=== PATIENT | male | born 1950 | race Caucasian/White ===

== ENCOUNTER 2021-10-11 17:49 | Outpatient (REF) | payer OTHER, SELFPAY ==
[2021-10-11 22:12] LABS: PSA, Diagnostic 38.8 ng/mL (0.0-6.5)
== END 2021-10-11 17:50 | disposition home or self-care (01) ==
LOC: LBN 17:49
PROVIDERS: PCP Internal Medicine; Visit Provider Nurse Practitioner Gerontology
DX: C61 Malignant neoplasm of prostate (principal)
CPT/HCPCS: 84153

== ENCOUNTER → 2022-01-02 01:24 | Outpatient (CLI) | payer OTHER, SELFPAY ==
--- NOTE | 2022-01-02 10:30 | DI.NM_ITS ---
Exam(s) DE BONE SCAN WHOLE BODY GRP EXAM: DE BONE SCAN WHOLE BODY GRP CLINICAL HISTORY: MALIGNANT NEOPLASM OF PROSTATE, C61, RESTAGING,[id number]. COMPARISON: [facility] BONE WHOLE BODY/TC MDP UP TO 30 MCI from 09/29/[address] CHEST/ABD/PEL WO from 01/02/2022 TECHNIQUE: Whole body bone scan was performed with intravenous infusion of 25 millicuries of technet ium 99 labeled methylene diphosphonate. There is increased uptake associated with right AC joint, today's CT examination shows hypertrophic c hanges at that site and prior examination from [facility] from September 2017 also showed increase d uptake at this site. This is unlikely to represent metastatic disease. Lumbar spine shows areas of increased uptake probably related to degenerative change, correlating wit h today's abdominal and pelvic CT. Areas of increased uptake in both knees both ankles and cervical spine are consistent with degenerati ve changes as well. FINDINGS: Pattern of findings is consistent with degenerative changes at multiple sites, no definite evidence o f metastatic disease. Follow-up examination suggested in 12 months. IMPRESSION: DATA REPOSITORY:
[2022-01-02 10:58] LABS: Abs Immature Grans 0.02 10^3/uL (0.0-0.06); Absolute Basophil Count 0.02 10^3/uL (0.0-0.2); Absolute Eosinophil Count 0.07 10^3/uL (0.0-0.7); Absolute Lymphocyte Count 1.52 10^3/uL (1.2-3.4); Absolute Monocyte Count 0.65 10^3/uL (0.1-0.8); Absolute Neutrophil Count 2.79 10^3/uL (1.2-6.7); Basophils % 0.4; Eosinophils % 1.4; Immature Grans % 0.4; MCH 31.9 pg (27.0-33.0); MCHC 33.3 % (32.0-36.0); MCV 95.7 fL (80-95); MPV 9.6 fL (8.0-11.0); Monocytes % 12.8; Platelet Count 159 10^3/uL (130-400); RBC 4.39 10^6/uL (4.36-5.78); RDW 12.7 % (11.8-14.1); RDW-SD 45.1 fL; WBC 5.07 10^3/uL (4.4-10.8)
[2022-01-02] MEDS: Omnipaque 350 MG/ML 50 ML BTL PO (11:02)
--- NOTE | 2022-01-02 11:05 | DI.CT_ITS ---
Exam(s) CT CHEST/ABD/PEL WO EXAM: CT CHEST/ABD/PEL WO CLINICAL HISTORY: MALIGNANT NEOPLASM OF PROSTATE, RESTAGING,[id number] TECHNIQUE: CT examination of the chest, abdomen, and pelvis was performed without IV contrast admin istration. Oral contrast was administered. COMPARISON: CT CT ABD PELVIS WITHOUT CONTRAST from 08/19/2019 FINDINGS: Lungs are clear. No pleural effusion. No pleural based mass. No mediastinal or hilar adenopathy. No axillary or supraclavicular adenopathy. Tracheobronchial nadira e appears intact. Thoracic aorta is of normal note is made of coronary artery calcification.. The liver contains a couple of small low-attenuation lesions, unchanged from prior outside CT of 2018. Note is made of cholelithiasis. No biliary dilatation seen. Spleen is unremarkable in appearance. Pancreas appears intact. Adrenals appear normal. Kidneys are atrophic with no gross hydronephrosis or nephrolithiasis.. Abdominal aorta and major visceral branches appear intact. No focal bowel pathology. Appendix is normal. No evidence of diverticulitis. There are a couple of mildly prominent internal iliac chain nodes on the left, the largest measuring about 1 cm in diameter. 1 cm in diameter right external iliac chain node is noted. No gross pelvic mass. No additional adenopathy period. No significant abdominal wall hernia. No focal bony lesion identified on scanning of the chest, abdomen, and pelvis. IMPRESSION: Mildly prominent pelvic lymph nodes as described above, the largest about 1 cm in diameter in right e xternal and left internal iliac chains, these do not appear to have been present on prior examination of August 2019. No other significant change. RADIATION DOSE DELIVERED: 1,648.29mGy.cm Total DLP 1,648.29mGy.cm Total DLP !Error CTDIvol RADIATION OPTIMIZATION: All CT scans at this facility use at least one of these dose optimization te chniques: automated exposure control; mA and/or kV adjustment per patient size (includes targeted exa ms where dose is matched to clinical indication); or iterative reconstruction.
[2022-01-02 11:11] LABS: ALT 50 U/L (16-63); AST 23 U/L (15-37); Albumin 4.1 g/dL (3.4-5.0); Alkaline Phosphatase 91 U/L (46-116); BUN 26 mg/dL (7-18); Bilirubin, Total 0.6 mg/dL (0.2-1.0); CREATININE 1.9 mg/dL (0.70-1.30); Calcium 9.5 mg/dL (8.5-10.1); Chloride 103 mmol/L (98-107); Estimated GFR 34.92 (mL/min/1.73m2); Glucose 108 mg/dL (74-106); Potassium 4.5 mmol/L (3.5-5.1); Sodium 137 mmol/L (136-145); Total Protein 7.7 g/dL (6.4-8.2)
[2022-01-03 19:15] LABS: PSA, Ultrasensitive 25.6 ng/mL (<= 6.5)
[2022-01-05 15:52] LABS: Testosterone, Total 8.5 ng/dL (240-950)
== END ==
PROVIDERS: PCP Internal Medicine; Visit Provider Internal Medicine
DX: C61 Malignant neoplasm of prostate (principal); K76.89 Other specified diseases of liver; K80.20 Calculus of gallbladder without cholecystitis without obstruction; R59.0 Localized enlarged lymph nodes; M17.0 Bilateral primary osteoarthritis of knee; M53.86 Other specified dorsopathies, lumbar region; M85.811 Other specified disorders of bone density and structure, right shoulder
CPT/HCPCS: 71250; 78306; 80053; 84153; 84403; 74176; 85025; Q9967

== ENCOUNTER 2022-01-28 16:13 | Emergency (ER) | payer OTHER, SELFPAY ==
[2022-01-28 16:23] VITALS: BP 161/76; PULSE 64; RESP 16; TEMP 36.8; O2SAT 97
--- NOTE | 2022-01-28 16:45 | RT.EKG_ITS ---
APPROVED REPORT Exam: Resting ECG Reason for Exam: epigasatric pain Patient Location: E HR:69 bpm ECG Measurements Heart Rate 69 AXIS WA 157 P 67 QRSd 89 QRS -2 QT 392 T 28 QTc 421 Conclusion Sinus rhythm...normal P axis, V-rate 60- 99 sinus rhythm, left axis, normal intervals, non ischemic
--- NOTE | 2022-01-28 16:50 | DI.CT_ITS ---
Exam(s) CT ABDOMEN PELVIS WO EXAM: CT ABDOMEN PELVIS WO CLINICAL HISTORY: abd pain, left flank, epigastr; hx prostate cancer. TECHNIQUE: Imaging Protocol: Axial computed tomography images with coronal and sagittal reformatted images were created and reviewed CONTRAST MATERIAL: Intravenous: none. Contrast shorter Contingency protocol. Oral: None COMPARISON: CT CT CHEST/ABD/PEL WO from 01/02/2022 FINDINGS: VISUALIZED LUNG BASES: No nodules nor pleural effusions evident. ABDOMEN: There is no ascites. LIVER: Previously described small subcapsular hypodensity in the right hepatic lobe is again noted, u nchanged, measuring 9 x 8 millimeters. This either represents a cyst or hemangioma; less likely omin ous pathology. GALLBLADDER/BILIARY: Multiple gallstones are again noted along posterior aspect of the gallbladder an d as well as in the neck and cystic duct. Gallbladder is slightly distended. No gallbladder wall ed leonora or pericholecystic fluid. CBD is not dilated. PANCREAS: No evidence of pancreatic mass nor dilatation of the pancreatic duct. SPLEEN: Spleen is not enlarged. No obvious intrasplenic lesions. ADRENALS: There are no significant adrenal masses. KIDNEYS:The left kidney is again noted to be moderately atrophic. Mild dilatation of the upper colle cting system noted. Left ureter is not dilated. No radiopaque calculi seen in the kidneys nor along the ureters. The wall of the urinary bladder is diffusely thickened.. Bladder is not distended. T here is a 1 cm hypodensity in the lateral cortex of the right kidney which is probably a cyst.. ABDOMINAL AORTA: Abdominal aorta is not enlarged. LYMPH NODES: There is no retroperitoneal nor paraaortic adenopathy. ABDOMINAL WALL: No evidence of significant anterior abdominal wall nor inguinal hernia. Subcutaneous stranding over the anterior right abdominal wall noted, as well as similar finding on the left side. Probably related to injections. There is no drainable abscess at these locations. GI: There is no evidence of bowel obstruction, free air, nor abscess. PELVIS: LYMPH NODES: There is no intrapelvic nor inguinal adenopathy. GI: Appendix diameter is 9 millimeters but there is some air seen in the appendix and no periappendic eal streaking. No appendicular lith. There is no significant sigmoid diverticular disease. URINARY BLADDER: No calculi nor obvious masses evident REPRODUCTIVE: Prostate normal size. OSSEOUS: No significant osseous lesions. No fractures. IMPRESSION: 1. Multiple gallstones are seen within the gallbladder neck including 1 in the cystic duct measuring 7 millimeters and the gallbladder is somewhat distended but not obviously edematous. Suspect develop ing possible acute cholecystitis. The CBD is not dilated. Pancreas appears unremarkable. 2. 9 x 8 millimeters subcapsular hypodensity in the right hepatic lobe again noted. Probably a benig n cyst or hemangioma. These can be differentiated with ultrasound. 3. Small area of hypodensity measuring 1 cm in the right kidney, difficult to assess on this non cont rast study and another reason to perform ultrasound to ensure that it is a cyst. 4. Bladder wall is uniformly thickened. This appears more so than related to mild under distension. Consider cystoscopy. Prostate does not appear grossly enlarged. No intrapelvic adenopathy. RADIATION DOSE DELIVERED: 1,114.55mGy.cm Total DLP DATA REPOSITORY: All CT scans at this facility are submitted to the National Radiology Data Registry (NRDR) Dose Index Registry (DIR) with the [employer] (ACR). RADIATION OPTIMIZATION: All CT scans at this facility use at least one of these dose optimization te chniques: automated exposure control; mA and/or kV adjustment per patient size (includes targeted exa ms where dose is matched to clinical indication); or iterative reconstruction.
[2022-01-28 17:14] LABS: Bilirubin Negative (Negative); Blood Trace-intact (Negative); Clarity Clear (Clear); Glucose Negative (Negative); Ketones Negative (Negative); Leukocyte Esterase Small (Negative); Nitrite Negative (Negative); Specific Gravity 1.025 (1.005-1.025); Urobilinogen 0.2 EU/dL (Up TO 0.2); pH 5.5 (5-8)
[2022-01-28 17:23] LABS: WBC >50 HPF (0-5)
[2022-01-28 17:24] LABS: Bacteria Many HPF (Negative); C & S Indicated? Yes; Crystals Negative HPF (Negative); Epithelial Cells Negative HPF (Negative); Mucus Negative (Negative)
--- NOTE | 2022-01-28 17:26 | ED.GENADUL_ITS ---
Discharge Plan Disposition Patient Disposition: HOME Condition: Improving Discharge Details Clinical Impression: Gallstones, Abdominal pain Primary Care Provider: YASMEEN VILLA ED Provider: Jasbir Corbin Home Meds and New Rx's Prescriptions: New cefpodoxime 200 mg tablet 200 mg PO BID 10 Days Qty: 20 0RF Rx Instructions: must administer with a meal/food No Action lisinopril 20 mg tablet 20 mg PO DAILY acetaminophen [Tylenol] 325 mg capsule 650 mg PO Q6H PRN multivitamin Tablet 1 tab PO DAILY Discharge Instructions Instructions: Abdominal Pain (ED) Additional Instructions: He has been found to have many gallstones as well as an enlarged appendix, please return to the emergency department if you have worsening abdominal pain fevers chills nausea vomiting or any other abnormal symptoms. We will also be treating you for urinary tract infection. Please take medications as prescribed. Please follow-up with GI and surgical services. Again if any of your symptoms become worse you need to return to the emergency department as it was suggested that you be admitted today for further treatment and evaluation Medical Decision Making 71-year-old male history of prostate cancer, kidney stones, gallstones, presents with epigastric and left flank pain over the past several hours mild nausea, now resolved, self catheterize multiple times a day, normal urine per patient, no radiation or chemotherapy for prostate cancer has been monitoring PSA and has been get testosterone suppression, abdomen soft nontender nondistended afebrile nontoxic. Consider UTI versus early pyelonephritis versus kidney stone versus intermittent biliary colic versus less likely cholecystitis versus enteritis or colitis versus less likely atypical ACS. Screening labs imaging close reassessment. 19: 28 patient resting comfortably no acute distress. Evidence of mild UTI. Gallstones in the gallbladder, mildly elevated lipase, consider cholecystitis versus migratory stone with choledocho/early gallstone pancreatitis, incidental finding of enlarged appendix however no periappendiceal stranding, no white count, patient is nonperitoneal; patient counseled extensively regarding findings encouraged patient to stay to be hospitalized for evaluation of biliary pathology, patient is adamant that he does not want to stay in the hospital and wishes to go home. Given strict return precautions both the patient and the family return precautions such as nausea vomiting fevers chills worsening abdominal pain or any other abnormal symptoms. Will be given GI and surgical follow-up. HPI General Date/Time Provider Initiated Documentation: 01/28/22 16:14 . HPI Narrative: 71-year-old male history of prostate cancer, self-catheterization multiple times a day, prior kidney stones, prior gallstones presents with abdominal pain epiga stric in nature also left flank associate with nausea no vomiting denies fevers or chills. Symptoms resolved before arrival. No chest pain or shortness of breath. Currently is receiving testosterone suppression injections, has not received any chemotherapy or radiation. Related Data Home Medications Medication Instructions Recorded Confirmed acetaminophen 325 mg capsule 650 mg PO Q6H PRN 10/11/21 01/28/22 (Tylenol) lisinopril 20 mg tablet 20 mg PO DAILY 10/11/21 01/28/22 cefpodoxime 200 mg tablet 200 mg PO BID 10 days #20 tabs 01/28/22 multivitamin 1 tab PO DAILY 01/28/22 01/28/22 Previous Rx's Medication Instructions Recorded cefpodoxime 200 mg tablet 200 mg PO BID 10 days #20 tabs 01/28/22 Allergies Allergy/AdvReac Type Severity Reaction Status Date / Time sulfur [From Sulfur-8] Allergy Verified 01/28/22 16:29 General Stated Complaint: Abd Prob MICHEAL: 3 Review of Systems Narrative: Review of Systems Constitutional: negative Eyes: negative ENT: negative Cardiovascular: negative Respiratory: negative Gastrointestinal: Abdominal pain : Flank pain Musculoskeletal: negative Skin: negative Neurologic: negative Psych: negative PFSH All Active Problems (Updated 01/28/22 @ 19:33 by Jasbir Corbin MD) Gallstones (Acute) Abdominal pain (Acute) Social History Smoking/Tobacco Use Status: Never Smoking risk assessment performed?: Yes Alcohol Intake: never Drug use: Never Substance use type: does not use Do you feel safe at home: Yes Do you feel safe in your relationship?: Yes Exam Narrative Exam Narrative: Physical Examination General: alert, awake, cooperative, resting comfortably, no acute distress HEENT: normocephalic, atraumatic; PERRL, EOM intact, conjunctiva normal; no nasal discharge; moist mucous membranes, oral and pharyngeal mucosa normal, tolerating secretions Neck: supple, trachea midline; full ROM Chest: normal to inspection Respiratory: normal respiratory effort, speaking in full sentences, clear to auscultation, no wheezing, rales or rhonchi Cardiac: regular rate, regular rhythm, S1S2 intact, no murmurs rubs or gallops GI: abdomen soft, non-tender, non-distended; no palpable mass or hepatosplenomegaly Skin: no lesions, rashes or trauma appreciated Neuro: AAOx3, normal speech, moving all extremities Psych: Appropriate mood and affect Course Vital Signs Vital signs: Vital Signs Temperature 36.8 C 01/28/22 16:23 Pulse 64 01/28/22 16:23 Respiratory Rate 16 01/28/22 16:23 Blood Pressure 161/76 H 01/28/22 16:23 Pulse Oximetry 97 01/28/22 16:23 Temperature 36.8 C 01/28/22 16:23 Temperature Source Oral 01/28/22 16:23 Pulse 64 01/28/22 16:23 Respiratory Rate 16 01/28/22 16:23 Respiratory Effort Non-Labored 01/28/22 16:28 Blood Pressure 161/76 H 01/28/22 16:23 Blood Pressure Position Sitting 01/28/22 16:23 Pulse Oximetry 97 01/28/22 16:23 Oxygen Delivery Method Room Air 01/28/22 16:23 Oxygen Flow Rate 0 01/28/22 16:23 Pain Level 8 01/28/22 16:23 Lab/Test Results Lab/Test Results: 01/28/22 17:00 Urine - Reflex from Ua Urine Culture - Pending Laboratory Tests Range/Units 01/28/22 17:00 Urine Color (Yellow) Yellow Urine Clarity (Clear) Clear Urine pH (5-8) 5.5 Ur Specific [place] (1.005-1.025) 1.025 Urine Protein (Negative) mg/dL 30 H Urine Ketones (Negative) mg/dL Negative Urine Blood (Negative) Trace-intact H Urine Nitrite (Negative) Negative Urine Bilirubin (Negative) Negative Urine Urobilinogen (Up TO 0.2) EU/dL 0.2 Ur Leukocyte Esterase (Negative) Small H Urine RBC (0-2) HPF 5-10 H Urine WBC (0-5) HPF >50 H Ur Epithelial Cells (Negative) HPF Negative Urine Crystals (Negative) HPF Negative Urine Bacteria (Negative) HPF Many Urine Mucus (Negative) Negative Ur Culture Indicated? Yes Urine Glucose (Negative) mg/dL Negative
[2022-01-28] MEDS: Ondansetron 4 MG/2 ML VIAL IVP (17:45)
[2022-01-28 17:51] LABS: Abs Immature Grans 0.04 10^3/uL (0.0-0.06); Absolute Basophil Count 0.02 10^3/uL (0.0-0.2); Absolute Eosinophil Count 0.06 10^3/uL (0.0-0.7); Absolute Lymphocyte Count 1.24 10^3/uL (1.2-3.4); Absolute Monocyte Count 0.56 10^3/uL (0.1-0.8); Absolute Neutrophil Count 4.81 10^3/uL (1.2-6.7); Basophils % 0.3; Eosinophils % 0.9; HCT 40.7 % (40.0-50.0); HGB 13.3 g/dL (13.5-17.5); Immature Grans % 0.6; Lymphocytes % 18.4; MCH 31.6 pg (27.0-33.0); MCHC 32.7 % (32.0-36.0); MCV 97 fL (80-95); MPV 9.7 fL (8.0-11.0); Monocytes % 8.3; Neutrophils % 71.5; Platelet Count 175 10^3/uL (130-400); RBC 4.21 10^6/uL (4.36-5.78); RDW 13.2 % (11.8-14.1); RDW-SD 46.6 fL; WBC 6.73 10^3/uL (4.4-10.8)
[2022-01-28 18:07] LABS: ALT 35 U/L (16-63); AST 22 U/L (15-37); Albumin 4.5 g/dL (3.4-5.0); Alkaline Phosphatase 100 U/L (46-116); Anion Gap 11.2 mmol/L (3-11); BUN 29 mg/dL (7-18); Bilirubin, Total 0.4 mg/dL (0.2-1.0); CO2 24.8 mmol/L (21.0-32.0); CREATININE 2.1 mg/dL (0.70-1.30); Calcium 9.8 mg/dL (8.5-10.1); Chloride 103 mmol/L (98-107); Estimated GFR 31.11 (mL/min/1.73m2); Glucose 110 mg/dL (74-106); Lipase 659 U/L (73-393); Potassium 4.1 mmol/L (3.5-5.1); Sodium 139 mmol/L (136-145); Total Protein 8.2 g/dL (6.4-8.2); Troponin I < 50 ng/L (<or=60)
--- NOTE | 2022-01-28 18:37 | DI.VRAD_ITS ---
Addendum created by Wade Espitia MD on 01/28/2022 7:12:45 PM EDT: THIS REPORT CONTAINS FINDINGS THAT MAY BE CRITICAL TO PATIENT CARE. The findings were verbally communicated via telephone conference with Jasbir Fam at 7:12 PM EDT on 01/28/2022. The findings were acknowledged and understood. Initial report created on 01/28/2022 6:37:13 PM EDT: PROCEDURE INFORMATION: Exam: CT Abdomen And Pelvis Without Contrast Exam date and time: 01/28/2022 6:05 PM Age: 71 years old Clinical indication: Other: Abd pain, left flank, epigastr; HX prostate cancer; Patient HX: Prostate cancer actively being treated TECHNIQUE: Imaging protocol: Computed tomography of the abdomen and pelvis without contrast. COMPARISON: CT CHEST/ABD/PEL WO 01/02/2022 11:01 AM FINDINGS: Lungs: The visualized lung bases are within normal limits. There are slight atelectatic changes at the lung bases. Heart: The visualized portions of the heart and pericardium are unremarkable. Liver: There is a small low-attenuation lesion within the right lobe of the liver measuring approximately the 8 mm. This was present on the earlier study and appears unchanged. This most likely represents a small liver cyst. Gallbladder and bile ducts: There are multiple gallstones within the gallbladder. There are gallstones within the neck of the gallbladder. There is a gallstone within the cystic duct measuring 7 mm. The gallbladder is somewhat distended. Pancreas: The pancreas is unremarkable. Spleen: The spleen is within normal limits. Adrenal glands: The adrenal glands are unremarkable. Kidneys and ureters: There is slight fullness of the renal collecting systems bilaterally. Stomach and bowel: Unremarkable. No obstruction. No mucosal thickening. Appendix: The appendix is prominent measuring 9 mm. This could represent early appendicitis. Clinical correlation is recommended. Intraperitoneal space: Unremarkable. No free air. No significant fluid collection. Vasculature: There are arteriosclerotic changes of the aorta. Lymph nodes: No enlarged lymph nodes. Urinary bladder: The urinary bladder is not very distended with urine. There is thickening of the urinary bladder wall. This could however be due to under distension. Clinical correlation is recommended. Reproductive: The prostate and seminal vesicles appeared within normal limits. Bones/joints: There are degenerative changes of the thoracic and lumbar spines. There is degenerative disc disease involving all levels of the thoracic spine. There are slight degenerative changes of both hips. Soft tissues: There is a right-sided lipoma within the external oblique muscle of the abdomen. This measures 8.4 x 3.2 cm. IMPRESSION: 1. Cholelithiasis as above. This could be re-evaluated with an abdominal ultrasound. 2. The appendix measured 9 mm. Clinical correlation is recommended. This could possibly represent early appendicitis. The urinary bladder is not very distended. The bladder wall appears somewhat thickened. This could be due to under distension. Other etiologies are not excluded. The patient has a history of prostatic CA. 3. Right-sided lipoma as described above. 4. Osseous findings as above. 5. Liver cyst as above. Dictated and Authenticated by: Wade Espitia MD. Ordering:DAHIANA Martell MD
--- NOTE | 2022-01-29 16:50 | NUR.NOTE ---
Addendum entered by Merly Abbott 01/29/22 16:55: Called the patient back, told him per Dr. 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 Also told him that I faxed the information to Dr Briseida Muse so that they can call Anil. [place] Dr Briseida Muse . Original Note: Nursing Note: Patient chart information faxed to [place] so that they can review and then give the OK to Gris Walsh to release the medication to the patient. Merly Abbott
== END 2022-01-28 19:50 | disposition home or self-care (01) ==
PROVIDERS: Emergency Provider Emergency Medicine; PCP Internal Medicine
DX: K80.20 Calculus of gallbladder without cholecystitis without obstruction (principal); K38.8 Other specified diseases of appendix; R10.9 Unspecified abdominal pain; R10.13 Epigastric pain
CPT/HCPCS: 36415; 80053; 83690; 87077; 93005; 96374; 99284; 74176; 81003; 81015; 84484; 85025; 87086; 87186; 93010; J2405

== ENCOUNTER 2022-06-25 15:14 | Outpatient (CLI) | payer OTHER, SELFPAY ==
[2022-06-25 12:23] LABS: Abs Immature Grans 0.04 10^3/uL (0.0-0.06); Absolute Basophil Count 0.02 10^3/uL (0.0-0.2); Absolute Eosinophil Count 0.14 10^3/uL (0.0-0.7); Absolute Lymphocyte Count 1.71 10^3/uL (1.2-3.4); Absolute Monocyte Count 1.18 10^3/uL (0.1-0.8); Absolute Neutrophil Count 5.19 10^3/uL (1.2-6.7); Basophils % 0.2; Eosinophils % 1.7; HCT 37.6 % (40.0-50.0); HGB 12.9 g/dL (13.5-17.5); Immature Grans % 0.5; Lymphocytes % 20.7; MCH 32.2 pg (27.0-33.0); MCHC 34.3 % (32.0-36.0); MCV 94 fL (80-95); MPV 9.6 fL (8.0-11.0); Monocytes % 14.3; Neutrophils % 62.6; Platelet Count 152 10^3/uL (130-400); RBC 4.01 10^6/uL (4.36-5.78); RDW 13.3 % (11.8-14.1); RDW-SD 45.4 fL; WBC 8.28 10^3/uL (4.4-10.8)
[2022-06-25 12:34] LABS: ALT 33 U/L (16-63); AST 25 U/L (15-37); Albumin 3.9 g/dL (3.4-5.0); Alkaline Phosphatase 117 U/L (46-116); Anion Gap 9.5 mmol/L (3-11); BUN 22 mg/dL (7-18); Bilirubin, Total 0.4 mg/dL (0.2-1.0); CO2 27.5 mmol/L (21.0-32.0); CREATININE 1.7 mg/dL (0.70-1.30); Calcium 9.4 mg/dL (8.5-10.1); Chloride 102 mmol/L (98-107); Estimated GFR 41.78 (mL/min/1.73m2); Glucose 101 mg/dL (74-106); Potassium 4.2 mmol/L (3.5-5.1); Sodium 139 mmol/L (136-145); Total Protein 7.8 g/dL (6.4-8.2)
[2022-06-26 13:11] LABS: PSA, Ultrasensitive 98.4 ng/mL (<= 6.5)
[2022-06-27 15:45] LABS: Testosterone, Total <7.0 ng/dL (240-950)
== END 2022-06-25 15:15 | disposition home or self-care (01) ==
LOC: LBO 15:16
PROVIDERS: PCP Internal Medicine; Visit Provider Internal Medicine
DX: C61 Malignant neoplasm of prostate (principal)
CPT/HCPCS: 36415; 80053; 84153; 84403; 85025

== ENCOUNTER 2022-08-01 11:02 | Outpatient (CLI) | payer OTHER, SELFPAY ==
[2022-08-01 11:24] LABS: Abs Immature Grans 0.07 10^3/uL (0.0-0.06); Absolute Basophil Count 0.01 10^3/uL (0.0-0.2); Absolute Eosinophil Count 0.08 10^3/uL (0.0-0.7); Absolute Lymphocyte Count 1.15 10^3/uL (1.2-3.4); Absolute Monocyte Count 0.64 10^3/uL (0.1-0.8); Absolute Neutrophil Count 4.39 10^3/uL (1.2-6.7); Basophils % 0.2; Eosinophils % 1.3; HCT 36.1 % (40.0-50.0); Immature Grans % 1.1; Lymphocytes % 18.1; MCH 32.3 pg (27.0-33.0); MCHC 33.2 % (32.0-36.0); MCV 97 fL (80-95); MPV 9.6 fL (8.0-11.0); Monocytes % 10.1; Neutrophils % 69.2; Platelet Count 109 10^3/uL (130-400); RBC 3.72 10^6/uL (4.36-5.78); RDW 14.1 % (11.8-14.1); WBC 6.34 10^3/uL (4.4-10.8)
[2022-08-01 12:16] LABS: ALT 26 U/L (16-63); AST 24 U/L (15-37); Albumin 4.2 g/dL (3.4-5.0); Alkaline Phosphatase 100 U/L (46-116); Anion Gap 8.9 mmol/L (3-11); BUN 25 mg/dL (7-18); Bilirubin, Total 0.5 mg/dL (0.2-1.0); CO2 27.1 mmol/L (21.0-32.0); CREATININE 1.8 mg/dL (0.70-1.30); Calcium 9.6 mg/dL (8.5-10.1); Chloride 105 mmol/L (98-107); Estimated GFR 39.01 (mL/min/1.73m2); Glucose 107 mg/dL (74-106); Potassium 4.2 mmol/L (3.5-5.1); Sodium 141 mmol/L (136-145); Total Protein 7.8 g/dL (6.4-8.2)
[2022-08-02 17:52] LABS: PSA, Ultrasensitive 59.3 ng/mL (<= 6.5)
[2022-08-07 12:13] LABS: Testosterone, Total <7.0 ng/dL (240-950)
== END 2022-08-01 11:03 | disposition home or self-care (01) ==
LOC: LBO 11:02
PROVIDERS: PCP Internal Medicine; Visit Provider Internal Medicine
DX: C61 Malignant neoplasm of prostate (principal)
CPT/HCPCS: 36415; 80053; 84153; 84403; 85025

== ENCOUNTER 2022-09-10 12:41 | Outpatient (CLI) | payer OTHER, SELFPAY ==
[2022-09-10 11:52] LABS: Abs Immature Grans 0.03 10^3/uL (0.0-0.06); Absolute Basophil Count 0.03 10^3/uL (0.0-0.2); Absolute Monocyte Count 0.97 10^3/uL (0.1-0.8); Absolute Neutrophil Count 4.52 10^3/uL (1.2-6.7); Basophils % 0.4; Eosinophils % 1.4; HCT 39.6 % (40.0-50.0); HGB 13.4 g/dL (13.5-17.5); Immature Grans % 0.4; Lymphocytes % 18.7; MCH 32.1 pg (27.0-33.0); MCHC 33.8 % (32.0-36.0); MCV 95 fL (80-95); MPV 9.4 fL (8.0-11.0); Neutrophils % 65.1; Platelet Count 144 10^3/uL (130-400); RBC 4.18 10^6/uL (4.36-5.78); RDW 13.2 % (11.8-14.1); RDW-SD 46.2 fL; WBC 6.95 10^3/uL (4.4-10.8)
[2022-09-10 12:05] LABS: ALT 22 U/L (16-63); AST 21 U/L (15-37); Albumin 4.3 g/dL (3.4-5.0); Alkaline Phosphatase 98 U/L (46-116); Anion Gap 9.1 mmol/L (3-11); BUN 23 mg/dL (7-18); Bilirubin, Total 0.6 mg/dL (0.2-1.0); CO2 28.9 mmol/L (21.0-32.0); CREATININE 1.7 mg/dL (0.70-1.30); Calcium 9.5 mg/dL (8.5-10.1); Chloride 101 mmol/L (98-107); Estimated GFR 41.78 (mL/min/1.73m2); Glucose 111 mg/dL (74-106); Potassium 4.1 mmol/L (3.5-5.1); Sodium 139 mmol/L (136-145); Total Protein 7.6 g/dL (6.4-8.2)
[2022-09-14 02:02] LABS: Testosterone, Total <7.0 ng/dL (240-950)
== END 2022-09-10 12:42 | disposition home or self-care (01) ==
LOC: LBO 12:46
PROVIDERS: PCP Internal Medicine; Visit Provider Internal Medicine
DX: C61 Malignant neoplasm of prostate (principal)
CPT/HCPCS: 36415; 80053; 84153; 84403; 85025

== ENCOUNTER 2022-12-02 12:44 | Outpatient (CLI) | payer OTHER, SELFPAY ==
[2022-12-02 12:33] LABS: Abs Immature Grans 0.05 10^3/uL (0.0-0.06); Absolute Basophil Count 0.03 10^3/uL (0.0-0.2); Absolute Eosinophil Count 0.06 10^3/uL (0.0-0.7); Absolute Lymphocyte Count 1.52 10^3/uL (1.2-3.4); Absolute Monocyte Count 0.88 10^3/uL (0.1-0.8); Absolute Neutrophil Count 4.11 10^3/uL (1.2-6.7); Basophils % 0.5; Eosinophils % 0.9; HCT 39.9 % (40.0-50.0); HGB 13.7 g/dL (13.5-17.5); Immature Grans % 0.8; Lymphocytes % 22.9; MCH 31.7 pg (27.0-33.0); MCHC 34.3 % (32.0-36.0); MCV 92 fL (80-95); MPV 9.7 fL (8.0-11.0); Monocytes % 13.2; Neutrophils % 61.7; Platelet Count 144 10^3/uL (130-400); RBC 4.32 10^6/uL (4.36-5.78); RDW 13.7 % (11.8-14.1); RDW-SD 47.2 fL; WBC 6.65 10^3/uL (4.4-10.8)
[2022-12-02 13:12] LABS: ALT 26 U/L (16-63); AST 17 U/L (15-37); Albumin 4.2 g/dL (3.4-5.0); Alkaline Phosphatase 94 U/L (46-116); BUN 18 mg/dL (7-18); Bilirubin, Total 0.7 mg/dL (0.2-1.0); CREATININE 1.6 mg/dL (0.70-1.30); Calcium 10.2 mg/dL (8.5-10.1); Chloride 103 mmol/L (98-107); Estimated GFR 44.93 (mL/min/1.73m2); Glucose 109 mg/dL (74-106); Potassium 4.1 mmol/L (3.5-5.1); Sodium 141 mmol/L (136-145); Total Protein 7.6 g/dL (6.4-8.2)
[2022-12-05 11:08] LABS: PSA, Ultrasensitive 45.9 ng/mL (<= 6.5)
[2022-12-06 02:54] LABS: Testosterone, Total <7.0 ng/dL (240-950)
== END 2022-12-02 12:45 | disposition home or self-care (01) ==
LOC: LBO 05-13 12:44
PROVIDERS: PCP Internal Medicine; Visit Provider Internal Medicine
DX: C61 Malignant neoplasm of prostate (principal)
CPT/HCPCS: 36415; 80053; 84153; 84403; 85025

== ENCOUNTER 2022-12-23 17:45 | Inpatient (IN) | payer OTHER, SELFPAY ==
[2022-12-23] VITALS (22 sets, daily range): BP systolic 114–150; BP diastolic 62–74; PULSE 82–107; RESP 13–20; TEMP 37.8; O2SAT 93–96
--- NOTE | 2022-12-23 18:30 | DI.CT_ITS ---
Exam(s) CT ABDOMEN PELVIS W EXAM: CT ABDOMEN PELVIS W CLINICAL HISTORY: jaundice, icterus, abd pain. TECHNIQUE: Imaging Protocol: Axial computed tomography images with coronal and sagittal reformatted images were created and reviewed CONTRAST MATERIAL: Intravenous: Omnipaque-350 100cc Oral: None COMPARISON: CT CT ABDOMEN PELVIS WO from 01/28/2022 FINDINGS: VISUALIZED LUNG BASES: No nodules nor pleural effusions evident. ABDOMEN: There is no ascites. LIVER: There is an unchanged subcapsular benign-appearing lesion in the right hepatic lobe measuring 1.2 x 1.1 cm. Either cyst or hemangioma. Another smaller hypodensity is seen higher up in the right hepatic. There are no new ominous focal hepatic lesions evident nor prominent dilatation of intrahe patic ducts . GALLBLADDER/BILIARY: Multiple gallstones are again noted in the gallbladder lumen. Most of these are in the neck of the gallbladder with mild distention of the gallbladder evident. There also multiple calculi in the nondilated CBD, without least 2 of these small calculi in the CBD noted. PANCREAS: No evidence of pancreatic head mass. Uncinate process retains normal triangular configurat ion. Remainder of the pancreas is also unremarkable with no evidence of pancreatic duct dilatation o r obvious pancreatitis. SPLEEN: Spleen is not enlarged. No obvious intrasplenic lesions. Splenic and portal veins are paten t. ADRENALS: There are no significant adrenal masses. KIDNEYS:Benign-appearing cyst noted in the lateral cortex of the right kidney measuring 1.3 x 1.2 cm. This does not require follow-up. No other significant focal findings in the right kidney. Left ki dney a appears mildly atrophic, similar to previous. No hydronephrosis nor hydroureter. Urinary myah dder wall is diffusely thickened, similar to previous. Prostate gland is enlarged and lobulated.. ABDOMINAL AORTA: Abdominal aorta is not enlarged. LYMPH NODES:There is no retroperitoneal nor paraaortic adenopathy. ABDOMINAL WALL: No evidence of significant anterior abdominal wall nor inguinal hernia. However, the re is subcutaneous density over the anterior bilaterally which are probably related to injection site s. No drainable fluid collection at these levels. GI: There is no evidence of bowel obstruction, free air, nor abscess. PELVIS: GI: No evidence of appendicitis.No evidence of sigmoid diverticulitis. LYMPH NODES: There is no adenopathy around the aortic bifurcation nor along the iliac chains. Andry howard, there is significant left inguinal adenopathy. No adenopathy in the right inguinal region. REPRODUCTIVE: Prostate enlarged and lobulated with bladder wall invasion. URINARY BLADDER: Abnormally uniform thick-walled OSSEOUS: No fractures and no significant osseous lesions. Multilevel chronic degenerative disc disease. No listhesis. IMPRESSION: 1. There is cholelithiasis and there are at least 2 calcified gallstones in the lower CBD. Remainder of the gallstones are in the gallbladder neck and the gallbladder is mildly distended but not grossl y edematous. CBD diameter is upper normal and there is no obvious dilatation of intrahepatic ducts. Pancreas appears unremarkable with no evidence of pancreatic duct dilatation or pancreatitis. 2. Left inguinal adenopathy evident. This requires investigation. No adenopathy in the opposite-rig ht inguinal region nor elsewhere in the abdomen and pelvis. Spleen size upper normal. 3. Abnormally enlarged and lobulated prostate gland and abnormally thickened urinary bladder wall, po ssibly related to chronic outlet obstruction. Recommend PSA testing given the appearance of the pros arora gland. 4. Other findings as above. RADIATION DOSE DELIVERED: 1,378.87mGy.cm Total DLP DATA REPOSITORY: All CT scans at this facility are submitted to the National Radiology Data Registry (NRDR) Dose Index Registry (DIR) with the [employer] (ACR). RADIATION OPTIMIZATION: All CT scans at this facility use at least one of these dose optimization te chniques: automated exposure control; mA and/or kV adjustment per patient size (includes targeted exa ms where dose is matched to clinical indication); or iterative reconstruction.
--- NOTE | 2022-12-23 18:30 | RT.EKG_ITS ---
APPROVED REPORT Exam: Resting ECG Reason for Exam: weakness Patient Location: E HR:100 bpm ECG Measurements Heart Rate [address] 135 P 79 QRSd 82 QRS 2 QT 337 T 53 QTc 435 Conclusion Sinus tachycardia...rate> 99
[2022-12-23 18:52] LABS: Bilirubin Moderate (Negative); Blood Moderate (Negative); Clarity Clear (Clear); Glucose Negative (Negative); Ketones Trace mg/dL (Negative); Leukocyte Esterase Small (Negative); Nitrite Positive (Negative); Specific Gravity 1.015 (1.005-1.025); Urobilinogen 0.2 mg/dL (Up to 0.2)
[2022-12-23 19:06] LABS: Bacteria Many HPF (Negative); C & S Indicated? Yes; Casts Negative LPF (Negative); Crystals Negative HPF (Negative); Epithelial Cells Rare HPF (Negative); Mucus Negative (Negative); WBC 20-50 HPF (0-5)
[2022-12-23] MEDS: Lactated Ringers 1,000 ML 1000 ML IV (19:21)
[2022-12-23 19:27] LABS: Lactate 1.3 mmol/L (0.6-1.4)
[2022-12-23] MEDS: Acetaminophen 325 MG TAB 650 MG PO (19:27)
[2022-12-23 19:31] LABS: Absolute Basophil Count 0.04 10^3/uL (0.0-0.2); Absolute Lymphocyte Count 0.95 10^3/uL (1.2-3.4); Absolute Monocyte Count 2.34 10^3/uL (0.1-0.8); Basophils % 0.2; Eosinophils % 0.2; HCT 37.7 % (40.0-50.0); HGB 13.1 g/dL (13.5-17.5); Immature Grans % 0.7; Lymphocytes % 5.3; MCH 31.5 pg (27.0-33.0); MCHC 34.7 % (32.0-36.0); MCV 91 fL (80-95); Monocytes % 13.1; Neutrophils % 80.5; RBC 4.16 10^6/uL (4.36-5.78); RDW 14.2 % (11.8-14.1); RDW-SD 47.1 fL; WBC 17.85 10^3/uL (4.4-10.8)
[2022-12-23 19:35] LABS: Absolute Eosinophil Count 0.04 10^3/uL (0.0-0.7); Absolute Neutrophil Count 14.37 10^3/uL (1.2-6.7)
[2022-12-23 19:46] LABS: ALT 434 U/L (16-63); AST 262 U/L (15-37); Albumin 3.5 g/dL (3.4-5.0); Alkaline Phosphatase 148 U/L (46-116); Anion Gap 11.9 mmol/L (3-11); BUN 21 mg/dL (7-18); CO2 22.1 mmol/L (21.0-32.0); CREATININE 1.6 mg/dL (0.70-1.30); Calcium 8.9 mg/dL (8.5-10.1); Chloride 95 mmol/L (98-107); Estimated GFR 44.93 (mL/min/1.73m2); Glucose 91 mg/dL (74-106); Lipase 41 U/L (16-77); Sodium 129 mmol/L (136-145)
[2022-12-23 20:06] LABS: Burr Cells (echinocyte) 2+; Diff Comment Agrees w/ Instrument
[2022-12-23 20:07] LABS: Platelet Count 88 10^3/uL (130-400)
[2022-12-23] MEDS: Omnipaque 350 MG/ML 100 ML BTL IJ (20:19)
[2022-12-23] MEDS: Normal Saline Flush 10 ML SYR IVP (20:20)
[2022-12-23] MEDS: Normal Saline - Diluent 50 ML VIAL IJ (20:20)
[2022-12-23] MEDS: PIPERACILLIN/TAZO 3.375 GM in Normal Saline 50 ML IVPB (20:47)
--- NOTE | 2022-12-23 21:14 | W.ED.GENAD ---
Discharge Plan Disposition Patient Disposition: [facility] Discharge Details Clinical Impression: Choledocholithiasis, Hyperbilirubinemia, Abnormal transaminases, Acute UTI, Sepsis Admit Date/Time: 12/23/22 22:21 Admit Provider: Linda Patel Attending Provider: Linda Patel Primary Care Provider: YASMEEN VILLA ED Provider: Shi Bal Discharge Data Discharge Date/Time-TO BE ENTERED AT DEPARTURE: 12/24/22 00:03 Medical Decision Making 72-year-old male presenting with abdominal pain yesterday and now presents with right flank pain and fever of 102 at home Denies any vomiting but has been intermittently nauseous Secondary to age and comorbidities and clinical exam, CT scan abdomen and pelvis was ordered which shows evidence of biliary obstruction, elevated LFTs, lipase within normal limits, CBC, leukocytosis, 17,000 with shift, lactate within normal limits, blood cultures pending, chemistry with hyponatremia, 129, CHETNA, creatinine 1.6, AST of 263, ALT of 443, bilirubin of 9 Secondary to meeting sepsis criteria and with urinary tract infection and biliary obstruction, Zosyn was administered Case was discussed with Dr. Patel, surgery, recommendation for ERCP, attempted transfer patient to [facility], however they are currently at capacity, spoke with Dr. Hernandez, geriatrician who recommends ERCP, however believes tomorrow is reasonable and reports they are able to accept patient in the morning, they will be in contact with our facility Recommend Zosyn administration Case discussed with Dr. Patel and she is willing to admit patient to her service, patient has been stable throughout this encounter, receiving IV fluid infusion, Tylenol for fever, Zofran as needed pain, and will be n.p.o. after 12:00 for likely procedure tomorrow, no anticoagulation recommended is likely ERCP at [facility] tomorrow Patient agreeable to admission at this time, full CODE STATUS, confirmed with patient HPI General Date/Time Provider Initiated Documentation: 12/23/22 18:16. HPI Narrative: This 72-year-old male presents with right upper quadrant pain yesterday after eating and now is reporting some blood in his urine with some back pain. Denies any chest pain or shortness of breath. Denies any nausea or vomiting. Denies any fever or chills. States he was supposed to have a cholecystectomy but decided to wait after discussion with surgeon. Denies any alcohol consumption. Related Data Home Medications Medication Instructions Recorded Confirmed acetaminophen 325 mg capsule 650 mg PO Q6H PRN 10/11/21 12/23/22 (Tylenol) lisinopril 20 mg tablet 20 mg PO DAILY 10/11/21 12/23/22 multivitamin 1 tab PO DAILY 01/28/22 12/23/22 [id number] 1 applic topical PRN PRN 12/23/22 12/23/22 petrolatum topical cream (Moisturizing Cream topical) polyvinyl alcohol 1.4 % eye drops 2 drp ophthalmic (eye) BID-QID PRN 12/23/22 12/23/22 (Artificial Tears (polyvinyl alcohol)) abiraterone 250 mg tablet 1,000 mg PO DAILY 12/24/22 12/24/22 prednisone 5 mg tablet 5 mg PO DAILY 12/24/22 12/24/22 Allergies Allergy/AdvReac Type Severity Reaction Status Date / Time sulfur [From Sulfur-8] Allergy Verified 12/23/22 17:52 General Stated Complaint: Urinary MICHEAL: 3 PFSH All Active Problems (Updated 12/25/22 @ 08:33 by IMMANUEL Herrera) Hyperbilirubinemia (Acute) Abnormal transaminases (Acute) Acute UTI (Acute) Sepsis (Acute) Choledocholithiasis (Acute) Prostate cancer (Chronic) Hypertension (Chronic) Surgical History (Updated 12/24/22 @ 07:20 by Linda Patel MD) History of orchiectomy, unilateral Social History (Updated 12/24/22 @ 07:20 by Linda Patel MD) Smoking/Tobacco Use Status: Never Smoking risk assessment performed?: Yes Alcohol Intake: never Drug use: Never Substance use type: does not use current occupation: retired Do you feel safe at home: Yes Do you feel safe in your relationship?: Yes Exam Const General: cooperative, comfortable and no acute distress Orientation: alert and oriented x3 HENMT Head: normal to inspection Eyes Other: Icterus Resp Effort & Inspection: normal respiratory effort Auscultation: clear to auscultation bilaterally Cardio Rate: regular rate Rhythm: regular rhythm Skin General skin exam: no rashes or lesions noted Neuro General: patient alert and patient oriented x3 Course Vital Signs Vital signs: Vital Signs Temperature 37.8 C H 12/23/22 17:48 Pulse 107 H 12/23/22 17:48 Respiratory Rate 19 12/23/22 17:48 Blood Pressure 150/74 H 12/23/22 17:48 Pulse Oximetry 95 12/23/22 17:48 Temperature 37.8 C H 12/23/22 17:48 Temperature Source Tympanic 12/23/22 17:48 Pulse 107 H 12/23/22 17:48 Respiratory Rate 19 12/23/22 17:48 Respiratory Effort Normal 12/23/22 17:51 Blood Pressure 150/74 H 12/23/22 17:48 Blood Pressure Position Sitting 12/23/22 17:48 Pulse Oximetry 95 12/23/22 17:48 Oxygen Delivery Method Room Air 12/23/22 17:48 Oxygen Flow Rate 0 12/23/22 17:48 Pain Level 0 12/23/22 17:51 Lab/Test Results Lab/Test Results: 12/23/22 19:45 Blood Blood Culture - Pending 12/23/22 19:18 Blood Blood Culture - Pending 12/23/22 18:06 Urine - Reflex from Ua Urine Culture - Pending Laboratory Tests Range/Units 12/23/22 12/23/22 12/23/22 18:06 19:18 19:18 WBC (4.4-10.8) 10^3/uL RBC (4.36-5.78) 10^6/uL Hgb (13.5-17.5) g/dL Hct (40.0-50.0) % MCV (80-95) fL MCH (27.0-33.0) pg MCHC (32.0-36.0) % RDW (11.8-14.1) % Plt Count (130-400) 10^3/uL MPV (8.0-11.0) fL Immature Gran % Neutrophils % Lymphocytes % Monocytes % Eosinophils % Basophils % Nucleated RBC % (0.0-0.3) % Absolute Neutrophils (1.2-6.7) 10^3/uL Absolute Lymphocytes (1.2-3.4) 10^3/uL Absolute Monocytes (0.1-0.8) 10^3/uL Absolute Eosinophils (0.0-0.7) 10^3/uL Absolute Basophils (0.0-0.2) 10^3/uL RBC Morphology Gunner Cells/Echinocytes VBG Lactate (0.6-1.4) mmol/L 1.3 Sodium (136-145) mmol/L 129 L Potassium (3.5-5.1) mmol/L 4.0 Chloride (98-107) mmol/L 95 L Carbon Dioxide (21.0-32.0) mmol/L 22.1 Anion Gap (3-11) mmol/L 11.9 H BUN (7-18) mg/dL 21 H Creatinine (0.70-1.30) mg/dL 1.6 H Est GFR (CKD-EPI 2020) (mL/min/1.73m2) 44.93 Glucose (74-106) mg/dL 91 Calcium (8.5-10.1) mg/dL 8.9 Total Bilirubin (0.2-1.0) mg/dL 9.0 H AST (15-37) U/L 262 H ALT (16-63) U/L 434 H Alkaline Phosphatase (46-116) U/L 148 H Total Protein (6.4-8.2) g/dL 7.0 Albumin (3.4-5.0) g/dL 3.5 Lipase (16-77) U/L 41 Urine Color (Yellow) Mono Urine Clarity (Clear) Clear Urine pH (5-8) 6.0 Ur Specific [place] (1.005-1.025) 1.015 Urine Protein (Negative) mg/dL 100 H Urine Ketones (Negative) mg/dL Trace H Urine Blood (Negative) Moderate H Urine Nitrite (Negative) Positive H Urine Bilirubin (Negative) Moderate H Urine Urobilinogen (Up to 0.2) mg/dL 0.2 Ur Leukocyte Esterase (Negative) Small H Urine RBC (0-2) HPF 10-20 H Urine WBC (0-5) HPF 20-50 H Ur Epithelial Cells (Negative) HPF Rare Urine Crystals (Negative) HPF Negative Urine Bacteria (Negative) HPF Many Urine Casts (Negative) LPF Negative Urine Mucus (Negative) Negative Ur Culture Indicated? Yes Urine Glucose (Negative) mg/dL Negative Range/Units 12/23/22 19:18 WBC (4.4-10.8) 10^3/uL 17.85 H RBC (4.36-5.78) 10^6/uL 4.16 L Hgb (13.5-17.5) g/dL 13.1 L Hct (40.0-50.0) % 37.7 L MCV (80-95) fL 91 MCH (27.0-33.0) pg 31.5 MCHC (32.0-36.0) % 34.7 RDW (11.8-14.1) % 14.2 H Plt Count (130-400) 10^3/uL 88 L MPV (8.0-11.0) fL 10.0 Immature Gran % 0.7 Neutrophils % 80.5 Lymphocytes % 5.3 Monocytes % 13.1 Eosinophils % 0.2 Basophils % 0.2 Nucleated RBC % (0.0-0.3) % 0.0 Absolute Neutrophils (1.2-6.7) 10^3/uL 14.37 H Absolute Lymphocytes (1.2-3.4) 10^3/uL 0.95 L Absolute Monocytes (0.1-0.8) 10^3/uL 2.34 H Absolute Eosinophils (0.0-0.7) 10^3/uL 0.04 Absolute Basophils (0.0-0.2) 10^3/uL 0.04 RBC Morphology See Below [place] Cells/Echinocytes 2+ VBG Lactate (0.6-1.4) mmol/L Sodium (136-145) mmol/L Potassium (3.5-5.1) mmol/L Chloride (98-107) mmol/L Carbon Dioxide (21.0-32.0) mmol/L Anion Gap (3-11) mmol/L BUN (7-18) mg/dL Creatinine (0.70-1.30) mg/dL Est GFR (CKD-EPI 2020) (mL/min/1.73m2) Glucose (74-106) mg/dL Calcium (8.5-10.1) mg/dL Total Bilirubin (0.2-1.0) mg/dL AST (15-37) U/L ALT (16-63) U/L Alkaline Phosphatase (46-116) U/L Total Protein (6.4-8.2) g/dL Albumin (3.4-5.0) g/dL Lipase (16-77) U/L Urine Color (Yellow) Urine Clarity (Clear) Urine pH (5-8) Ur Specific [place] (1.005-1.025) Urine Protein (Negative) mg/dL Urine Ketones (Negative) mg/dL Urine Blood (Negative) Urine Nitrite (Negative) Urine Bilirubin (Negative) Urine Urobilinogen (Up to 0.2) mg/dL Ur Leukocyte Esterase (Negative) Urine RBC (0-2) HPF Urine WBC (0-5) HPF Ur Epithelial Cells (Negative) HPF Urine Crystals (Negative) HPF Urine Bacteria (Negative) HPF Urine Casts (Negative) LPF Urine Mucus (Negative) Ur Culture Indicated? Urine Glucose (Negative) mg/dL Critical Care Time Critical Care Time Attestation: Approximately 45 minutes of critical care time secondary to biliary obstruction, CHETNA with fluid resuscitation, IV and management biotic administration, sepsis, telemetry monitoring, CT abdomen and pelvis reviewed, diagnostic lab interpretation and review, telemetry monitoring, surgical consultation, gastroenterology consultation, admission to the hospital
--- NOTE | 2022-12-23 21:22 | DI.VRAD_ITS ---
PROCEDURE INFORMATION: Exam: CT Abdomen And Pelvis With Contrast Exam date and time: 12/23/2022 8:24 PM Age: 72 years old Clinical indication: Patient HX: Jaundice, icterus, abd pain, hematuria TECHNIQUE: Imaging protocol: Computed tomography of the abdomen and pelvis with contrast. Radiation optimization: All CT scans at this facility use at least one of these dose optimization techniques: automated exposure control; mA and/or kV adjustment per patient size (includes targeted exams where dose is matched to clinical indication); or iterative reconstruction. Contrast material: OMNIPAQUE 350; Contrast volume: 100 ml; Contrast route: INTRAVENOUS (IV); COMPARISON: CT ABDOMEN PELVIS WO 01/28/2022 6:05 PM FINDINGS: Diaphragm: Small hiatal hernia. Liver: Stable 12 mm cyst in left lobe. Several too small to characterize, hypoenhancing areas or lesions in each lobe. No mass. Gallbladder and bile ducts: Gallbladder minimally distended without wall thickening. Multiple small calcified gallstones. Moderate intra and extrahepatic biliary ductal dilatation, at least in part due to the presence of 2 small gallstones in distal common bile duct, 01/08-. Pancreas: Normal. No ductal dilation. Spleen: Normal. No splenomegaly. Adrenal glands: Normal. No mass. Kidneys and ureters: Bilateral renal scarring. Small left kidney. 1.5 cm simple cyst in right kidney, lower pole. No radiopaque renal or ureteric calculi. No hydronephrosis. Mild bilateral perinephric fat stranding. Stomach and bowel: No dilated loops of small bowel or colonic dilatation. Appendix: Normal appendix. Intraperitoneal space: No free intraperitoneal gas. Small pelvic ascites. Vasculature: Unremarkable. No abdominal aortic aneurysm. Lymph nodes: Left inguinal adenopathy with largest lymph node measuring up to 3.5 cm. Urinary bladder: Unremarkable as visualized. Reproductive: Unremarkable as visualized. Bones/joints: The spine demonstrates mild degenerative changes at multiple levels. Soft tissues: Unremarkable. IMPRESSION: 1. Biliary tract obstruction, at least in part due to multiple small gallstones in distal common bile duct. 2. Perinephric stranding of fat which could have several possible etiologies including scarring, third spacing of fluid, inflammatory process or infection. 3. Left inguinal adenopathy. 4. Small hiatal hernia. 5. Several additional non emergent findings. Dictated and Authenticated by: Ellis Dominguez MD. Ordering:ROSIE Osullivan MD
--- NOTE | 2022-12-23 22:18 | TELEP.MEDR_ITS ---
Date of service: 12/23/22 Time of Service: 22:18 Telepharmacy Home Med Rec Allergies Allergies: sulfur [From Sulfur-8] Allergy (Verified 12/23/22 17:52) Interview Person Interviewed: * Patient Quality Quality of Interview/Accuracy of Medication List: Excellent Sources Sources used to compile medication list: [employer] Medication List, Patient List and [employer] Changes made to Home Medication List: ADDITIONS: * Artificial tears 2 drops in each eyes 2-4 times daily as needed for dry eyes * Moisturiser cream 1 application topically as needed DELETIONS: * none CHANGES: * none Additional Notes Additional Notes: * none Recommended Changes Recommended Changes(reason for recommendation): * none Attestation: The home medication list is now updated to the best of my knowledge and is ready to be reconciled by the provider. Please contact the TelePharmacy Medication Reconciliation Pharmacist at for any questions.
--- NOTE | 2022-12-23 22:18 | TELEP.MEDREC ---
Date of service: 12/23/22 Time of Service: 22:18 Telepharmacy Home Med Rec Allergies Allergies: sulfur [From Sulfur-8] Allergy (Verified 12/23/22 17:52) Interview Person Interviewed: Patient Quality Quality of Interview/Accuracy of Medication List: Excellent Sources Sources used to compile medication list: [employer] Medication List, Patient List and [employer] Changes made to Home Medication List: ADDITIONS: Artificial tears 2 drops in each eyes 2-4 times daily as needed for dry eyes Moisturiser cream 1 application topically as needed DELETIONS: none CHANGES: none Additional Notes Additional Notes: none Recommended Changes Recommended Changes(reason for recommendation): none Attestation: The home medication list is now updated to the best of my knowledge and is ready to be reconciled by the provider. Please contact the TelePharmacy Medication Reconciliation Pharmacist at for any questions.
[2022-12-23 23:37] LABS: Source Nasal/Nares
[2022-12-24] VITALS (14 sets, daily range): BP systolic 112–163; BP diastolic 66–91; PULSE 67–101; RESP 14–22; TEMP 36.5–39.1; O2SAT 93–100
[2022-12-24] MEDS: Lactated Ringers 1,000 ML 100 ML IV ×3 (00:24→21:37)
[2022-12-24] MEDS: Normal Saline Flush 10 ML SYR IVP ×3 (00:24→17:55)
[2022-12-24 00:27] LABS: COVID-19 PCR Negative (Negative)
[2022-12-24] MEDS: Ondansetron 4 MG/2 ML VIAL IVP (00:45)
--- NOTE | 2022-12-24 07:10 | W.PM.HP.N ---
Date of service: 12/24/22 Time of Service: 07:11 Assessment and Plan Assessment and plan (1) Choledocholithiasis: Status: Acute Assessment and plan: Mr. Martinez is a pleasant 72-year-old gentleman who gets his medical care at the [facility], who comes in last night with worsening abdominal pain. Work-up in the emergency department revealed choledocholithiasis with hyperbilirubinemia. There were no suspicious finding on the CT scan concerning for cancer. The patient has known gallstones and was seen for them last year. He elected not to have surgery. The ER physician did speak with [facility] gastroenterology last night who stated that they would call us this morning to schedule the patient for an ERCP today. He was admitted overnight with IV fluids, antibiotics, pain medication and nausea medicine. I discussed with the patient his diagnosis today as well as recommendation that he to have his gallbladder removed this time. First we do need to have him go down to [facility] and get an ERCP to clear the stones. Once his infection is better controlled then we can discuss removing his gallbladder either on this admission or as an outpatient. (2) Hypertension: Status: Chronic (3) Prostate cancer: Status: Chronic History of Present Illness Consults Consult date: 12/23/22 Requesting physician: Shi Bal Narrative: Mr. Martinez is a pleasant 72-year-old gentleman who was admitted overnight for cholelithiasis with obstruction. He came into the emergency department complaining of some nausea, abdominal and back pain. He was seen almost a year ago for the same thing and at that time was noted to have gallstones. He apparently did see a surgeon at that time for cholecystectomy but decided to wait. He had not had any abdominal pain or nausea until yesterday. On admission he was noted to to be jaundiced. He also reported fevers into the 102 range. Work-up in the emergency department revealed an elevated white count at 17.85 with a left shift. He had a low sodium at 125 creatinine was elevated at 1.6. Total bili of 9, AST of 262, ALT of 434, alk phos of 148. His lipase was normal. His past medical history is significant for hypertension for which he takes lisinopril and prostate cancer for which he is on an oral chemotherapy drug. The patient also self caths. Review of Systems Constitutional Constitutional: Reports fever(s), Denies headache(s), Denies night sweats, Reports poor appetite and Denies weight loss Eyes Eyes: Denies change in vision ENT Ears, Nose, Mouth, and Throat: Denies headache(s) and Denies hoarseness Cardiovascular Cardiovascular: Denies chest pain, Denies chest pain at rest, Denies irregular heart rhythm and Denies dyspnea Respiratory Respiratory: Denies cough and Denies dyspnea Gastrointestinal Gastrointestinal: Reports as per HPI, Denies dyspepsia and Denies heartburn Genitourinary Genitourinary: Reports difficulty urinating (patient self caths) Musculoskeletal Musculoskeletal: Reports system reviewed and no additional complaints, except as documented Integumentary/Breasts Skin/Breast: Reports system reviewed and no additional complaints, except as documented Neurologic Neurologic: Reports system reviewed and no additional complaints, except as documented and Denies headache(s) Psychiatric Psychiatric: Reports system reviewed and no additional complaints, except as documented Endocrine Endocrine: Reports system reviewed and no additional complaints, except as documented Hematologic/Lymphatic Hematologic/Lymphatic: Reports system reviewed and no additional complaints, except as documented Allergic/Immunologic Allergic/Immunologic: Reports system reviewed and no additional complaints, except as documented PFSH All Active Problems (Updated 12/24/22 @ 07:25 by Linda Patel MD) Choledocholithiasis (Acute) Prostate cancer (Chronic) Hypertension (Chronic) Surgical History (Updated 12/24/22 @ 07:20 by Linda Patel MD) History of orchiectomy, unilateral Social History (Updated 12/24/22 @ 07:20 by Linda Patel MD) Smoking/Tobacco Use Status: Never Smoking risk assessment performed?: Yes Alcohol Intake: never Drug use: Never Substance use type: does not use current occupation: retired Do you feel safe at home: Yes Do you feel safe in your relationship?: Yes Meds Allergies and Home Medications Allergies Allergy/AdvReac Type Severity Reaction Status Date / Time sulfur [From Sulfur-8] Allergy Verified 12/23/22 17:52 Home Medications Medication Instructions Recorded Confirmed Type acetaminophen 325 mg capsule 650 mg PO Q6H PRN 10/11/21 12/23/22 History (Tylenol) lisinopril 20 mg tablet 20 mg PO DAILY 10/11/21 12/23/22 History multivitamin 1 tab PO DAILY 01/28/22 12/23/22 History [id number]-[id number]-[id number] 1 applic topical PRN PRN 12/23/22 12/23/22 History petrolatum topical cream (Moisturizing Cream topical) polyvinyl alcohol 1.4 % eye drops 2 drp ophthalmic (eye) BID-QID PRN 12/23/22 12/23/22 History (Artificial Tears (polyvinyl alcohol)) Exam Const General: comfortable and no acute distress Orientation: alert and oriented x3 HENMT Head: normocephalic and atraumatic Eyes Pupils: PERRL Resp Effort & Inspection: normal respiratory effort Auscultation: clear to auscultation bilaterally Cardio Rate: regular rate Rhythm: regular rhythm Heart Sounds: no gallops, no murmurs and no rubs GI Inspection: normal to inspection Palpation: soft, no hepatosplenomegaly, no guarding and tender (mild RUQ tenderness) with no rebound tenderness Auscultation: normal bowel sounds General: deferred Results Imaging Abdomen CT scan report/results: report reviewed and image reviewed CT scan - pelvis: report reviewed and image reviewed Labs 12/23/22 19:18 12/23/22 19:18 Labs: Laboratory Results - last 24 hr 12/23/22 12/23/22 12/23/22 18:06 19:18 19:18 WBC RBC Hgb Hct MCV MCH MCHC RDW Plt Count MPV Immature Gran % Neutrophils % Lymphocytes % Monocytes % Eosinophils % Basophils % Nucleated RBC % Absolute Neutrophils Absolute Lymphocytes Absolute Monocytes Absolute Eosinophils Absolute Basophils RBC Morphology Gun[place] Cells/Echinocytes VBG Lactate 1.3 Sodium 129 L Potassium 4.0 Chloride 95 L Carbon Dioxide 22.1 Anion Gap 11.9 H BUN 21 H Creatinine 1.6 H Est GFR (CKD-EPI 2020) 44.93 Glucose 91 Calcium 8.9 Total Bilirubin 9.0 H AST 262 H ALT 434 H Alkaline Phosphatase 148 H Total Protein 7.0 Albumin 3.5 Lipase 41 Urine Color [place] Urine Clarity Clear Urine pH 6.0 Ur Specific [place] 1.015 Urine Protein 100 H Urine Ketones Trace H Urine Blood Moderate H Urine Nitrite Positive H Urine Bilirubin Moderate H Urine Urobilinogen 0.2 Ur Leukocyte Esterase Small H Urine RBC 10-20 H Urine WBC 20-50 H Ur Epithelial Cells Rare Urine Crystals Negative Urine Bacteria Many Urine Casts Negative Urine Mucus Negative Ur Culture Indicated? Yes Urine Glucose Negative COVID-19 Source SARS-CoV-2 (PCR) 12/23/22 12/23/22 19:18 23:33 WBC 17.85 H RBC 4.16 L Hgb 13.1 L Hct 37.7 L MCV 91 MCH 31.5 MCHC 34.7 RDW 14.2 H Plt Count 88 L MPV 10.0 Immature Gran % 0.7 Neutrophils % 80.5 Lymphocytes % 5.3 Monocytes % 13.1 Eosinophils % 0.2 Basophils % 0.2 Nucleated RBC % 0.0 Absolute Neutrophils 14.37 H Absolute Lymphocytes 0.95 L Absolute Monocytes 2.34 H Absolute Eosinophils 0.04 Absolute Basophils 0.04 RBC Morphology See Below [place] Cells/Echinocytes 2+ VBG Lactate Sodium Potassium Chloride Carbon Dioxide Anion Gap BUN Creatinine Est GFR (CKD-EPI 2020) Glucose Calcium Total Bilirubin AST ALT Alkaline Phosphatase Total Protein Albumin Lipase Urine Color Urine Clarity Urine pH Ur Specific [place] Urine Protein Urine Ketones Urine Blood Urine Nitrite Urine Bilirubin Urine Urobilinogen Ur Leukocyte Esterase Urine RBC Urine WBC Ur Epithelial Cells Urine Crystals Urine Bacteria Urine Casts Urine Mucus Ur Culture Indicated? Urine Glucose COVID-19 Source Nasal/Nares SARS-CoV-2 (PCR) Negative Last Vital Signs Temp 99.3 F 12/24/22 03:25 Pulse 86 12/24/22 03:25 Resp 18 12/24/22 03:25 BP 138/76 12/24/22 03:25 Pulse Ox 93 12/24/22 03:25 Time Spent Time spent with Patient: 40-54 minutes Time was spent: preparing to see the patient(eg.review tests), obtaining and/or reviewing separately otained hiistory, ordering medications,tests, procedures, indepentently interpreting results and counseling the patient
[2022-12-24 07:32] LABS: Abs Immature Grans 0.07 10^3/uL (0.0-0.06); Absolute Basophil Count 0.02 10^3/uL (0.0-0.2); Absolute Eosinophil Count 0.05 10^3/uL (0.0-0.7); Absolute Monocyte Count 1.14 10^3/uL (0.1-0.8); Basophils % 0.2; Eosinophils % 0.4; HCT 33.6 % (40.0-50.0); Immature Grans % 0.6; MCH 32.4 pg (27.0-33.0); MCHC 35.7 % (32.0-36.0); MCV 91 fL (80-95); MPV 9.6 fL (8.0-11.0); Monocytes % 9.4; Neutrophils % 84.4; RDW 14.5 % (11.8-14.1); RDW-SD 48.2 fL; WBC 12.08 10^3/uL (4.4-10.8)
[2022-12-24 07:40] LABS: Anion Gap 6.2 mmol/L (3-11); BUN 22 mg/dL (7-18); CO2 22.8 mmol/L (21.0-32.0); CREATININE 1.7 mg/dL (0.70-1.30); Calcium 8.6 mg/dL (8.5-10.1); Chloride 101 mmol/L (98-107); Estimated GFR 41.78 (mL/min/1.73m2); Glucose 98 mg/dL (74-106); Magnesium 1.5 mg/dL (1.8-2.4); Sodium 130 mmol/L (136-145)
[2022-12-24 07:56] LABS: Diff Comment Diff Reviewed; Platelet Count 74 10^3/uL (130-400); RBC Morphology Normal
[2022-12-24] MEDS: Pantoprazole 40 MG VIAL IVP (08:42)
[2022-12-24] MEDS: PIPERACILLIN/TAZO 3.375 GM in Normal Saline 50 ML IVPB (08:42)
[2022-12-24] MEDS: ACETAMINOPHEN 1,000 MG/100 ML BTL 400 MG IVPB ×2 (09:28→17:54)
[2022-12-24] MEDS: Lisinopril 20 MG TAB PO (09:47)
[2022-12-24] MEDS: MAGNESIUM SULFATE 2 GM/50 ML BAG IVPB (09:47)
[2022-12-24] MEDS: POTASSIUM CHLORIDE 20 MEQ/100 ML BAG 50 MEQ IVPB ×2 (09:47→11:50)
--- NOTE | 2022-12-24 14:33 | INITIAL_ITS ---
- If Service Date Differs Date of service: 12/24/22 Time of Service: 14:33 Care Management Initial Assess REASON FOR HOSPITALIZATION:: choledocholithiasis PAST MEDICAL HISTORY/PAST SURGICAL HISTORY:: All Active Problems (Updated 12/24/22 @ 07:25 by Linda Patel MD). Choledocholithiasis (Acute). Prostate cancer (Chronic). Hypertension (Chronic). Surgical History (Updated 12/24/22 @ 07:20 by Linda Patel MD). History of orchiectomy, unilateral PREVIOUS FUNCTIONAL STATUS/SOCIAL/FAMILY SUPPORTS:: Rakesh lives in a single family home in [place], [place] with his Regla. They have 3 children who all live in [place]. Rakesh and Regla relocated to [place] from [place] about 17 years ago. 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 He served in the [employer] for 20 months and stated that he is 100% service connected. CURRENT FUNCTIONAL STATUS:: Rakesh was sitting up in a chair visiting with his when CM met with him. He was alert and oriented and agreeable to conversation. Rakesh stated that he believes that he will go [place] [facility] [place] ([place]) and return to [facility]. He is unclear what the next steps will be after that. He did state that he usually receives his healthcare at the [facility]. CM confirmed that the [facility] has been notified and that an authorization number was received. ADVANCE DIRECTIVES:: none on file but receives his care at the [facility] Has patient been provided with info about the portal/API?: Yes Did the patient sign up for the portal?: No CODE STATUS:: Full Code INSURANCE COVERAGE / FINANCIAL ISSUES:: VAVincent Cameron is 100% service connected. CURRENT HOME/COMMUNITY SERVICES/EQUIPMENT:: none currently PRIMARY CARE PHYSICIAN:: Briseida Muse ([facility]) POTENTIAL DISCHARGE NEEDS:: Follow up with his [facility] providers and discharge plan of care PATIENT/FAMILY EDUCATION NEEDS:: Review of dsicharge instructions, activity, limitations, follow up plan, discuss Ask Me Three TRANSPORTATION:: via private vehicle with family PLAN:: Anticipate Rakesh will go to [facility] [place] a down and [place] ERCP, possibly tomorrow, then return to [facility] before discharge. He will likley need a cholecystectomy in the near future, either on this admission or as an outpatient. Rakesh will follow up with his community providers and plan of care and transport with family. CM will continue to support Rakesh and assess for discharge needs.
[2022-12-24] MEDS: PIPERACILLIN/TAZO 4.5 GM in Normal Saline 100 ML IVPB ×2 (14:57→20:11)
[2022-12-25] VITALS (17 sets, daily range): BP systolic 120–142; BP diastolic 68–89; PULSE 42–94; RESP 14–20; TEMP 36.3–40.3; O2SAT 90–99
[2022-12-25] MEDS: Acetaminophen 325 MG TAB 650 MG PO (01:31)
[2022-12-25] MEDS: PIPERACILLIN/TAZO 4.5 GM in Normal Saline 100 ML IVPB ×4 (01:32→23:35)
--- NOTE | 2022-12-25 02:18 | NUR.NOTE ---
Nursing Note: pTs oral temp was 104.6f, ice packs placed under armpits, neck and forehead. pT provided with a basin of ice and a fan. pT comfortable at this time. no further updates.
[2022-12-25] MEDS: Lactated Ringers 1,000 ML 250 ML IV ×2 (02:38→06:13)
[2022-12-25] MEDS: Lactated Ringers 250 ML IV (02:40)
[2022-12-25 06:20] LABS: Absolute Basophil Count 0.01 10^3/uL (0.0-0.2); Absolute Eosinophil Count 0.04 10^3/uL (0.0-0.7); Absolute Monocyte Count 1.18 10^3/uL (0.1-0.8); Absolute Neutrophil Count 8.23 10^3/uL (1.2-6.7); Basophils % 0.1; Eosinophils % 0.4; HCT 30.7 % (40.0-50.0); HGB 10.6 g/dL (13.5-17.5); Lymphocytes % 5.9; MCH 31.4 pg (27.0-33.0); MCHC 34.5 % (32.0-36.0); MCV 91 fL (80-95); MPV 10.3 fL (8.0-11.0); Monocytes % 11.6; RBC 3.38 10^6/uL (4.36-5.78); RDW 14.6 % (11.8-14.1); RDW-SD 48.8 fL; WBC 10.16 10^3/uL (4.4-10.8)
[2022-12-25 06:40] LABS: ALT 178 U/L (16-63); AST 61 U/L (15-37); Albumin 2.5 g/dL (3.4-5.0); Alkaline Phosphatase 101 U/L (46-116); BUN 19 mg/dL (7-18); Bilirubin, Total 5.8 mg/dL (0.2-1.0); CREATININE 1.9 mg/dL (0.70-1.30); Calcium 8.5 mg/dL (8.5-10.1); Chloride 102 mmol/L (98-107); Estimated GFR 36.56 (mL/min/1.73m2); Glucose 108 mg/dL (74-106); Sodium 136 mmol/L (136-145); Total Protein 5.5 g/dL (6.4-8.2)
[2022-12-25 06:49] LABS: Diff Comment Diff Reviewed; Platelet Count 66 10^3/uL (130-400); RBC Morphology Normal
[2022-12-25] MEDS: Normal Saline Flush 10 ML SYR IVP ×3 (07:43→18:26)
--- NOTE | 2022-12-25 10:27 | PDOC.CMPRO ---
- If Service Date Differs Date of service: 12/25/22 Time of Service: 10:27 Care Management Progress Note S/O:Rakesh was sitting up in a chair visiting with his when CM met with him. He informed CM that he is waiting for the ambulance to take [place] [facility] [place]. His Regla asked if she could follow the ambulance down and wait for him while he had the procedure. CM contacted [facility] and confirmed that there is a waiting area in the GI Suite where she stay. Transport was scheduled for 10 am via [facility] and they departed on schedule. A: Rakesh is a 72 year old man admitted on 12/23/22 with a biliary obstruction P:Rakesh will go [place] [facility] [place] today, then return to [facility] before discharge. He will likely need a cholecystectomy in the near future, either on this admission or as an outpatient. Rakesh will follow up with his community providers and plan of care and transport with family. CM will continue to support Rakesh and assess for discharge needs.
--- NOTE | 2022-12-25 18:11 | PGE_ITS ---
Date of Service Date of service: 12/25/22 Time of Service: 18:11 Assessment and Plan Assessment and plan (1) Choledocholithiasis: Status: Acute Assessment and plan: I will repeat his blood work tomorrow to ensure that his bilirubin is starting to normalize. If his LFTs are improved, we could consider cholecystectomy prior to discharge. I am not sure what to make of the hematuria. We will flush the Andrade catheter today, and observe it over the next few hours. I will repeat a CBC tomorrow morning. Subjective Subjective Interval history since last seen: Mike had some fevers overnight, but was otherwise hemodynamically stable. He went down to [facility] for an ERCP today. Upon return, he feels okay. He has a little bit of hematuria. Exam GI Other: Abdomen is soft and nontender Other: External genitalia is normal. There is some hematuria with mild clotting within the Andrade drainage system. Objective Last Vital Signs Temp 98.2 F 12/25/22 17:14 Pulse 59 L 12/25/22 17:14 Resp 14 12/25/22 17:14 BP 138/78 12/25/22 17:14 Pulse Ox 90 L 12/25/22 17:14 Laboratory Results - last 24 hr 12/25/22 12/25/22 05:52 05:52 WBC 10.16 RBC 3.38 L Hgb 10.6 L Hct 30.7 L MCV 91 MCH 31.4 MCHC 34.5 RDW 14.6 H Plt Count 66 L MPV 10.3 Immature Gran % 1.0 Neutrophils % 81.0 Lymphocytes % 5.9 Monocytes % 11.6 Eosinophils % 0.4 Basophils % 0.1 Nucleated RBC % 0.0 Absolute Neutrophils 8.23 H Absolute Lymphocytes 0.60 L Absolute Monocytes 1.18 H Absolute Eosinophils 0.04 Absolute Basophils 0.01 RBC Morphology Normal Sodium 136 Potassium 3.0 L Chloride 102 Carbon Dioxide 22.0 Anion Gap 12.0 H BUN 19 H Creatinine 1.9 H Est GFR (CKD-EPI 2020) 36.56 Glucose 108 H Calcium 8.5 Magnesium 2.0 Total Bilirubin 5.8 H AST 61 H ALT 178 H Alkaline Phosphatase 101 Total Protein 5.5 L Albumin 2.5 L Time Spent with Patient Time Spent with Patient: 25-34 minutes Time was spent: preparing to see the patient(eg.review tests), ordering medications,tests, procedures, indepentently interpreting results, counseling the patient and care coordination
[2022-12-25] MEDS: POTASSIUM CHLORIDE 20 MEQ/100 ML BAG 50 MEQ IVPB (18:24)
[2022-12-26] VITALS (8 sets, daily range): BP systolic 121–154; BP diastolic 65–83; PULSE 52–70; RESP 16–20; TEMP 36–36.6; O2SAT 96–99
[2022-12-26] MEDS: PIPERACILLIN/TAZO 4.5 GM in Normal Saline 100 ML IVPB ×4 (06:00→23:17)
[2022-12-26 08:24] LABS: ALT 145 U/L (16-63); AST 42 U/L (15-37); Albumin 2.4 g/dL (3.4-5.0); Alkaline Phosphatase 94 U/L (46-116); BUN 25 mg/dL (7-18); Bilirubin, Total 4.1 mg/dL (0.2-1.0); CREATININE 1.9 mg/dL (0.70-1.30); Calcium 8.4 mg/dL (8.5-10.1); Chloride 99 mmol/L (98-107); Estimated GFR 36.56 (mL/min/1.73m2); Glucose 145 mg/dL (74-106); Potassium 4.1 mmol/L (3.5-5.1); Sodium 132 mmol/L (136-145)
[2022-12-26] MEDS: Lisinopril 20 MG TAB PO (08:53)
[2022-12-26] MEDS: predniSONE 5 MG TAB PO (08:53)
[2022-12-26 09:26] LABS: Lipase > 375 U/L (16-77); RBC 3.45 10^6/uL (4.36-5.78); WBC 6.35 10^3/uL (4.4-10.8)
[2022-12-26 09:27] LABS: HCT 31.9 % (40.0-50.0); MCH 31.9 pg (27.0-33.0); MCHC 34.5 % (32.0-36.0); MCV 93 fL (80-95); MPV 10.9 fL (8.0-11.0); RDW 14.8 % (11.8-14.1); RDW-SD 50.6 fL
[2022-12-26 09:28] LABS: Platelet Count 61 10^3/uL (130-400)
--- NOTE | 2022-12-26 09:47 | PGE_ITS ---
Date of Service Date of service: 12/26/22 Time of Service: 09:47 Assessment and Plan Assessment and plan (1) Choledocholithiasis: Status: Acute Assessment and plan: Postop day #1 following ERCP with stent placement at [facility] Plan improvement in patient's jaundice appearance. Bilirubin has declined some since yesterday Encourage activity out of bed, sitting in the chair and ambulation. Currently can have clear liquids, will advance slowly as patient tolerates. Andrade in place with dark lokesh/blood-tinged urine, encouraged nursing to continue to flush the Andrade. Continue to monitor for improvement in LFTs and bilirubin. -pt has a hx of metastatic prostate Ca. Possible to bladder. Pt has a hx of poor compliance to treatment plans. F/u Sallietsky at [facility]. Had XRT and self- caths. lipase mildly elevated -pt had x2 stents placed. Pt will need to have repeat ERCP for stent removal. -thrombocytopenia. Unclear etiology. I did review his medications with pharmac y and I do not think these would cause any problems. He does not show any signs of active bleeding. He has no prior history. His last platelet count at [facility] on 12/02/2022 was 144. -He is on prednisone 5 mg daily with his antiandrogen therapy. Subjective Subjective Interval history since last seen: Mental states that he is feeling tired today. He states that he feels a little worse than yesterday. Exam Const General: cooperative, healthy appearing and comfortable Orientation: alert and oriented x3 Resp Effort & Inspection: normal respiratory effort, no audible wheezes and no cough Objective Last Vital Signs Temp 36.3 C L 12/26/22 07:20 Pulse 55 L 12/26/22 07:20 Resp 18 12/26/22 07:20 BP 154/83 H 12/26/22 07:20 Pulse Ox 98 12/26/22 07:20 Laboratory Results - last 24 hr 12/26/22 12/26/22 06:00 06:00 WBC 6.35 RBC 3.45 L Hgb 11.0 L Hct 31.9 L MCV 93 MCH 31.9 MCHC 34.5 RDW 14.8 H Plt Count 61 L MPV 10.9 Sodium 132 L Potassium 4.1 D Chloride 99 Carbon Dioxide 22.0 Anion Gap 11.0 BUN 25 H Creatinine 1.9 H Est GFR (CKD-EPI 2020) 36.56 Glucose 145 H Calcium 8.4 L Total Bilirubin 4.1 H AST 42 H ALT 145 H Alkaline Phosphatase 94 Total Protein 6.0 L Albumin 2.4 L Lipase > 375 H Time Spent with Patient Time Spent with Patient: >50 minutes Time was spent: preparing to see the patient(eg.review tests), obtaining and/or reviewing separately otained hiistory, ordering medications,tests, procedures, referring, communicating with other health medical care administrator, indepentently interpreting results, counseling the patient and care coordination
--- NOTE | 2022-12-26 17:23 | CMPROGNOTE_ITS ---
- If Service Date Differs Date of service: 12/26/22 Time of Service: 17:23 Care Management Progress Note S/O: Rakesh remains inpatient. Per MD:Postop day #1 following [place] with [place] [facility] Plan improvement in patient's jaundice appearance. Bilirubin has declined some since yesterday Encourage activity out of bed, sitting in the chair and ambulation. Currently can have clear liquids, will advance slowly as patient tolerates. CM continues to follow. A: Rakesh is a 72 year old man admitted on 12/23/22 with a biliary obstruction P: Rakesh Postop day #1 following [place]CP with stent placement [place] [facility]; he continues to be closely monitored. He will likely need a cholecystectomy in the near future, either on this admission or as an outpatient. Rakesh will follow up with his community providers and plan of care and transport with family. CM will continue to support Rakesh and assess for discharge needs.
[2022-12-26] MEDS: Normal Saline Flush 10 ML SYR IVP (18:07)
[2022-12-27] VITALS (10 sets, daily range): BP systolic 112–138; BP diastolic 69–81; PULSE 47–68; RESP 14–19; TEMP 36.2–37.3; O2SAT 95–100
[2022-12-27] MEDS: PIPERACILLIN/TAZO 4.5 GM in Normal Saline 100 ML IVPB ×2 (06:07→13:12)
[2022-12-27 06:16] LABS: Abs Immature Grans 0.19 10^3/uL (0.0-0.06); Absolute Basophil Count 0.01 10^3/uL (0.0-0.2); Absolute Eosinophil Count 0.08 10^3/uL (0.0-0.7); Absolute Lymphocyte Count 1.18 10^3/uL (1.2-3.4); Absolute Monocyte Count 1.27 10^3/uL (0.1-0.8); Absolute Neutrophil Count 8.09 10^3/uL (1.2-6.7); Basophils % 0.1; Eosinophils % 0.7; HCT 30.7 % (40.0-50.0); HGB 10.9 g/dL (13.5-17.5); Immature Grans % 1.8; Lymphocytes % 10.9; MCHC 35.5 % (32.0-36.0); MCV 90 fL (80-95); MPV 10.3 fL (8.0-11.0); Monocytes % 11.7; Neutrophils % 74.8; RBC 3.41 10^6/uL (4.36-5.78); RDW 14.6 % (11.8-14.1); RDW-SD 48.3 fL; WBC 10.82 10^3/uL (4.4-10.8)
[2022-12-27 06:20] LABS: Reticulocyte 0.5 % (0.5-2.4)
[2022-12-27 06:36] LABS: ALT 110 U/L (16-63); AST 32 U/L (15-37); Albumin 2.4 g/dL (3.4-5.0); Alkaline Phosphatase 89 U/L (46-116); Bilirubin, Direct 2.1 mg/dL (0.0-0.2); Total Protein 5.8 g/dL (6.4-8.2)
[2022-12-27 06:37] LABS: C-Reactive Protein 10.42 mg/dL (0.0-0.3); LDH 161 U/L (85-227)
[2022-12-27 06:42] LABS: Lipase > 375 U/L (16-77)
[2022-12-27 07:48] LABS: Platelet Count 92 10^3/uL (130-400)
[2022-12-27 08:24] LABS: ESR 55 mm/hr (0-20)
[2022-12-27] MEDS: Lisinopril 20 MG TAB PO (09:17)
[2022-12-27] MEDS: predniSONE 5 MG TAB PO (09:17)
--- NOTE | 2022-12-27 10:18 | PDOC.CMPRO ---
- If Service Date Differs Date of service: 12/27/22 Time of Service: 10:18 Care Management Progress Note S/O: Rakesh was lying in bed, visiting with his when CM met with his. He is feeling better today. During this admission he went down and [place] [facility] [place] with stent placement and is Postop day #2. Per provider, pt will need to have a repeat ERCP for stent removal in 1-2 months. CM continues to follow. A: Rakesh is a 72 year old man admitted on 12/23/22 with a biliary obstruction P: Rakesh is Postop day #2 following ERCP with stent placement at [facility]; he continues to be closely monitored. Per provider, he will require an outpatient follow up at [facility] [place] 1-2 months for a repeat ERCP for stent removal. Rakesh will follow up with his community providers and plan of care and transport with family. CM will continue to support Rakesh and assess for discharge needs.
--- NOTE | 2022-12-27 14:16 | W.PM.PROGNOT ---
Date of Service Date of service: 12/27/22 Time of Service: 14:16 Assessment and Plan Assessment and plan (1) Choledocholithiasis: Status: Acute Assessment and plan: Postop day #2 following ERCP with stent placement at [facility] Bilirubin continues to decline. Encourage activity out of bed, sitting in the chair and ambulation. Tolerating clear liquids, will advance diet as tolerated. Andrade in place, with light colored urine today. Improved from yesterday. Continue to monitor for improvement in LFTs and bilirubin. Pt has a hx of metastatic prostate Ca. Possible to bladder. Pt has a hx of poor compliance to treatment plans. F/u Enochiris at [facility]. Had XRT and self- caths. Patient had x2 stents placed. Pt will need to have repeat ERCP for stent removal in 1-2 months. I saw and examined her Mike, and I agree with Melyssa's notes. He is doing well this morning, and tolerating clear liquids. He denies any nausea or vomiting, in fact his appetite is increased quite a bit. Currently he is denying any abdominal pain. His labs are a little bit better today, but his bilirubin is still above the normal limits, and his lipase is also quite high. I think is fine to discontinue his antibiotics since his biliary tree seems decompressed. I explained that we can see how his labs evolve over the next day or so. If he rapidly improves, then it would be reasonable to try to get his gallbladder out before his discharge. Given what sounds like a relatively challenging ERCP, however, it may be useful to give him a little more time to settle down prior to semielective cholecystectomy. For now, I will advance his diet, and recheck his labs tomorrow. Subjective Subjective Interval history since last seen: patient reports he is feeling better today. He has been ambulating in the room and hallways. Abdominal pain is also improving. Of note he states that he feels his urine becomes more red when bending over. He describes feeling some pressure but otherwise normal. Exam Const General: cooperative, healthy appearing and comfortable Orientation: alert and oriented x3 Resp Effort & Inspection: normal respiratory effort, no audible wheezes and no cough GI Inspection: normal to inspection Palpation: soft, no guarding and nontender Objective Last Vital Signs Temp 36.9 C 12/27/22 11:10 Pulse 57 L 12/27/22 11:10 Resp 14 04/14/23 11:10 BP 137/78 12/27/22 11:10 Pulse Ox 97 12/27/22 11:10 Laboratory Results - last 24 hr 12/27/22 12/27/22 12/27/22 06:05 06:05 06:05 WBC RBC Hgb Hct MCV MCH MCHC RDW Plt Count MPV Reticulocyte % (Auto) 0.5 Immature Gran % Neutrophils % Lymphocytes % Monocytes % Eosinophils % Basophils % Nucleated RBC % Absolute Neutrophils Absolute Lymphocytes Absolute Monocytes Absolute Eosinophils Absolute Basophils ESR 55 H Total Bilirubin Conjugated Bilirubin AST ALT Alkaline Phosphatase Lactate Dehydrogenase 161 C-Reactive Protein 10.42 H Total Protein Albumin Lipase > 375 H 12/27/22 12/27/22 06:05 06:05 WBC 10.82 H RBC 3.41 L Hgb 10.9 L Hct 30.7 L MCV 90 MCH 32.0 MCHC 35.5 RDW 14.6 H Plt Count 92 L D MPV 10.3 Reticulocyte % (Auto) Immature Gran % 1.8 Neutrophils % 74.8 Lymphocytes % 10.9 Monocytes % 11.7 Eosinophils % 0.7 Basophils % 0.1 Nucleated RBC % 0.0 Absolute Neutrophils 8.09 H Absolute Lymphocytes 1.18 L Absolute Monocytes 1.27 H Absolute Eosinophils 0.08 Absolute Basophils 0.01 ESR Total Bilirubin 3.0 H Conjugated Bilirubin 2.1 H AST 32 ALT 110 H Alkaline Phosphatase 89 Lactate Dehydrogenase C-Reactive Protein Total Protein 5.8 L Albumin 2.4 L Lipase Time Spent with Patient Time Spent with Patient: 25-34 minutes Time was spent: preparing to see the patient(eg.review tests), obtaining and/or reviewing separately otained hiistory, ordering medications,tests, procedures and counseling the patient
[2022-12-28] VITALS (9 sets, daily range): BP systolic 122–142; BP diastolic 67–83; PULSE 58–71; RESP 16–21; TEMP 36.8–37.1; O2SAT 94–98
[2022-12-28 06:42] LABS: HCT 32.3 % (40.0-50.0); HGB 11.3 g/dL (13.5-17.5); MCH 31.7 pg (27.0-33.0); MCV 91 fL (80-95); MPV 10.7 fL (8.0-11.0); Platelet Count 124 10^3/uL (130-400); RBC 3.56 10^6/uL (4.36-5.78); RDW 14.7 % (11.8-14.1); RDW-SD 49.6 fL; WBC 10.78 10^3/uL (4.4-10.8)
[2022-12-28 07:16] LABS: ALT 98 U/L (16-63); AST 31 U/L (15-37); Albumin 2.6 g/dL (3.4-5.0); Alkaline Phosphatase 94 U/L (46-116); Anion Gap 10.3 mmol/L (3-11); BUN 28 mg/dL (7-18); Bilirubin, Total 2.3 mg/dL (0.2-1.0); CO2 22.7 mmol/L (21.0-32.0); CREATININE 1.8 mg/dL (0.70-1.30); Calcium 8.7 mg/dL (8.5-10.1); Chloride 106 mmol/L (98-107); Estimated GFR 39.01 (mL/min/1.73m2); Glucose 99 mg/dL (74-106); Lipase 305 U/L (16-77); Potassium 3.1 mmol/L (3.5-5.1); Sodium 139 mmol/L (136-145)
[2022-12-28] MEDS: predniSONE 5 MG TAB PO (08:09)
[2022-12-28] MEDS: Lisinopril 20 MG TAB PO (08:09)
--- NOTE | 2022-12-28 18:29 | PGE_ITS ---
Date of Service Date of service: 12/28/22 Time of Service: 08:15 Assessment and Plan Assessment and plan (1) Choledocholithiasis: Status: Acute Assessment and plan: LFTs today suggest that the ERCP was successful. We talked about the role of interval cholecystectomy again today. Although his bilirubin is within an acceptable range for cholecystectomy, I would like to see his lipase improved. We will check it again tomorrow. We can decide at that time if he would like to stay for an elective cholecystectomy on Friday, or schedule it as an outpatient. Subjective Subjective Interval history since last seen: Rakesh says he feels much better today. He is already up sitting in the chair. He has been tolerating food without any problems. He denies abdominal pain this morning. Exam GI Inspection: normal to inspection Palpation: soft and nontender Percussion: normal to percussion Objective Last Vital Signs Temp 98.6 F 12/28/22 15:08 Pulse 60 12/28/22 16:12 Resp 16 12/28/22 15:08 BP 142/83 H 12/28/22 15:08 Pulse Ox 98 12/28/22 15:08 Laboratory Results - last 24 hr 12/28/22 12/28/22 06:07 06:07 WBC 10.78 RBC 3.56 L Hgb 11.3 L Hct 32.3 L MCV 91 MCH 31.7 MCHC 35.0 RDW 14.7 H Plt Count 124 L MPV 10.7 Sodium 139 Potassium 3.1 L D Chloride 106 Carbon Dioxide 22.7 Anion Gap 10.3 BUN 28 H Creatinine 1.8 H Est GFR (CKD-EPI 2020) 39.01 Glucose 99 Calcium 8.7 Total Bilirubin 2.3 H AST 31 ALT 98 H Alkaline Phosphatase 94 Total Protein 6.0 L Albumin 2.6 L Lipase 305 H Time Spent with Patient Time Spent with Patient: <25 minutes Time was spent: preparing to see the patient(eg.review tests), ordering medicat ions,tests, procedures, indepentently interpreting results and counseling the patient
[2022-12-28] MEDS: Ondansetron 4 MG/2 ML VIAL IVP (23:11)
[2022-12-28] MEDS: Normal Saline Flush 10 ML SYR IVP (23:11)
[2022-12-29] VITALS (7 sets, daily range): BP systolic 142–153; BP diastolic 70–77; PULSE 50–97; RESP 16; TEMP 36.3–36.9; O2SAT 95–98
[2022-12-29 07:22] LABS: Lipase 144 U/L (16-77)
[2022-12-29] MEDS: predniSONE 5 MG TAB PO (07:30)
[2022-12-29] MEDS: Normal Saline Flush 10 ML SYR IVP (07:30)
[2022-12-29] MEDS: Lisinopril 20 MG TAB PO (07:30)
[2022-12-29] MEDS: Psyllium PKT 1 EACH PO (10:03)
--- NOTE | 2022-12-29 10:13 | W.PM.PROGNOT ---
Date of Service Date of service: 12/29/22 Time of Service: 10:13 Assessment and Plan Assessment and plan (1) Choledocholithiasis: Status: Acute Assessment and plan: Jamaal is done very well after ERCP, with normalization of his liver function test. His lipase is still a little bit elevated today. Although I generally like to perform cholecystectomy prior to discharge for patients that experience choledocholithiasis or gallstone pancreatitis, I do have some concerns regarding operative procedures in the face of some mild pancreatitis. At this point, there is really nothing else keeping him in the hospital. Therefore, I think the best course of action is to discharge him home with a short interval cholecystectomy in the next week or 2 to come. With regards to his constipation, I ordered some bowel regimen today to help stimulate a bowel movement. Subjective Subjective Interval history since last seen: Mike did pretty well overnight. He is straight cathing. He did have a little bit of blood clot at the penile meatus, that was easily cleared. Otherwise he feels comfortable. He reports a little bit of abdominal bloating today seems most consistent with some mild constipation. He has not had a bowel movement since his admission. Exam GI Inspection: normal to inspection and non-distended Palpation: soft and nontender Percussion: normal to percussion Auscultation: hypoactive bowel sounds Objective Last Vital Signs Temp 97.5 F L 12/29/22 06:13 Pulse 83 12/29/22 07:13 Resp 16 12/29/22 06:13 BP 153/70 H 12/29/22 06:13 Pulse Ox 98 12/29/22 06:13 Laboratory Results - last 24 hr 12/29/22 06:04 Lipase 144 H Time Spent with Patient Time Spent with Patient: 25-34 minutes Time was spent: preparing to see the patient(eg.review tests), ordering medications,tests, procedures, counseling the patient and care coordination
--- NOTE | 2022-12-29 10:17 | W.PM.DS.N ---
Date of service: 12/29/22 Time of Service: 10:19 DS: Diagnosis Discharge Diagnosis (1) Choledocholithiasis: Status: Acute Asessment and Plan: Status post ERCP with sphincterotomy and retrieval of common bile duct gallstones Follow-up for interval cholecystectomy Discharge Plan Disposition Patient Disposition: Home Condition: Good Discharge Details Reason For Visit: Biliary Obstruction and Uti Admit Date/Time: 12/23/22 22:21 Admit Provider: Linda Patel Attending Provider: Linda Patel [facility]: Rakesh is a 72-year-old male who presents to the hospital with hyperbilirubinemia. He underwent a CAT scan that demonstrated choledocholithiasis. He transferred down to [facility] for a down and back ERCP and sphincterotomy with stenting. The nature of that procedure was a little bit challenging, but he had a favorable response with regards to his biochemistry, and normalization of his LFTs. Unfortunately, he did develop some biochemical evidence of post ERCP pancreatitis. We will give some time for resolution of the pancreatitis prior to interval cholecystectomy. Home Meds and New Rx's Prescriptions: New levofloxacin 750 mg tablet 750 mg PO DAILY Qty: 7 0RF Rx Instructions: Take 1 tablet by mouth every day Continued lisinopril 20 mg tablet 20 mg PO DAILY acetaminophen [Tylenol] 325 mg capsule 650 mg PO Q6H PRN multivitamin Tablet 1 tab PO DAILY polyvinyl alcohol [Artificial Tears (polyvin alc)] 1.4 % Drops 2 drp OPHTHALMIC (EYE) BID-QID PRN Moisturizing Cream Cream 1 applic TOPICAL PRN PRN abiraterone 250 mg Tablet 1,000 mg PO DAILY prednisone 5 mg Tablet 5 mg PO DAILY Discharge Instructions Instructions: Low Fat Diet (DC), Endoscopic Biliary Stent Placement (DC), ERCP (Endoscopic Retrograde Cholangiopancreatography) (DC) Additional Instructions: Rakesh, you were admitted to the hospital after a CAT scan demonstrated gallstones had become lodged in your common bile duct. We transferred you down to [facility] for a down and back ERCP. This procedure removed the gallstones from your common bile duct, and utilized to little stents to help keep the duct open and drained. The next step in your treatment will be removal of your gallbladder. As we talked about on the day of your discharge, you still have some mild elevation in the blood chemical called lipase. This indicates that there is some mild inflammation around your pancreas. I prefer to give this some time to resolve prior to removing your gallbladder. I will have my office contact you to schedule that operation in the next 1 to 2 weeks. Hopefully, we will be able to achieve that through a laparoscopic (or camera) type approach. We have attached some information here regarding the procedure that you had done at [facility]. Eventually, you will need to have those little stents removed through the same procedure that was used to place them there. We will help you coordinate that in the weeks to come. You were also found to have some bacteria growing in your bloodstream. This is almost certainly a result of your bile duct being blocked by the gallstones. You received some antibiotics while you were with us in the hospital, and I am repeating the blood cultures on the day of your discharge. I am putting in a prescription for a medicine called levofloxacin for the next 7 days, which should help with that. If the new blood cultures show that the bacteria are still there, you will need to have your blood tested again as an outpatient to make sure that the antibiotic cures it. Over the next week or 2, I would encourage you to try to minimize fats in your diet. Digestion of fat places some strain on the gallbladder, and can cause some irritation in this area. In the meantime, if you have any questions at all, please do not hesitate to call the office. Referrals: Matti Rivas MD [ [facility] ST[facility]FF PHYSICIAN] - (My office will contact you this week to schedule the removal of your gallbladder. It may be the case that one of my partners will do the operation, if that is the quickest way to get you onto the schedule. Hopefully, we can make those arrangements without you having to come into the office.) Activity:: Activity as Tolerated Equipment/Supplies:: No Equipment Needed Diet:: Low-fat Discharge Orders Discharge Orders: Discharge Order (Routine); Ordered 12/29/22 Ordered By: Matti Rivas DS: Summary Time Spent with Patient providing and/or coordinating discharge services: Greater than 30 minutes Status at Discharge Functional status at discharge: independent ambulation Overall status at discharge: patient is back to baseline Mental Status: mental status grossly normal Speech and Movement: speech and movement normal Mood: congruent mood Affect: normal affect Exam Const General: cooperative, healthy appearing and comfortable Orientation: awake and oriented x3 Eyes General: appearance normal, both eyes and all related structures Conjunctivae: conjunctivae normal Sclera: sclerae normal Resp Effort & Inspection: normal respiratory effort and able to speak in complete sentences Cardio Jugular venous pressure: no JVD Rate: regular rate GI Inspection: non-distended Palpation: soft, no guarding, no hernias and nontender Auscultation: normal bowel sounds Skin General skin exam: normal turgor Neuro General: patient alert, patient awake and patient oriented x3 Cognition: normal cognition Extrem Right lower extremity: no edema Left lower extremity: no edema Psych Mental Status: mental status grossly normal Speech and Movement: speech and movement normal Mood: congruent mood Affect: normal affect DS: Data Vitals/I&O Vitals and I&O: Vital Signs Temperature 97.5 F L 12/29/22 06:13 Temperature Source Tympanic 12/29/22 06:13 Pulse 83 12/29/22 07:13 Pulse Rhythm Regular 12/29/22 07:31 Pulse 87 12/23/22 22:50 Respiratory Rate 16 12/29/22 06:13 Respiratory Effort Normal 12/29/22 07:31 Respiratory Depth Normal 12/29/22 07:31 Respiratory Pattern Normal 12/29/22 07:31 Blood Pressure 153/70 H 12/29/22 06:13 Blood Pressure Mean 87 12/23/22 22:41 Blood Pressure Position Sitting 12/23/22 17:48 Pulse Oximetry 98 12/29/22 06:13 Oxygen Delivery Method Room Air 12/29/22 06:13 Oxygen Flow Rate 0 12/29/22 06:13 Pain Level 0 12/28/22 15:08 Comment Pt was put on o2 by the nurse after i took vitals 12/25/22 17:14 Intake & Output 12/28/22 12/28/22 12/29/22 11:59 23:59 11:59 Intake Total 740 / 1100 360 / 1100 Output Total 2200 / 2200 880 / 880 Balance 740 / -1100 -1840 / -1100 -870 / -870 Intake: IV Oral 740 / 1100 360 / 1100 Output: Urine 2200 / 2200 880 / 880 Other: Urine Color Light Vikki Urine Appearance Clear Cloudy Clots Urine Odor None Normal Comment Pt reported that there was a large clot in the end of my penis that I had to pull out because it was blocking everything from coming out Voiding Methods Self-Catheterization Self-Catheterization Data Completed and Pending Labs on day of discharge: Labs from last 24 hours 12/29/22 06:04 Lipase 144 H PFSH All Active Problems (Updated 12/29/22 @ 10:43 by Matti Rivas MD) Bacteremia due to Klebsiella pneumoniae (Acute) Thrombocytopenia (Chronic) Chronic kidney disease (CKD) stage G3b/A1, moderately decreased glomerular filtration rate (GFR) between 30-44 mL/min/1.73 square meter and albuminuria creatinine ratio less than 30 mg/g (Acute) Hyperbilirubinemia (Acute) Abnormal transaminases (Acute) Acute UTI (Acute) Sepsis (Acute) Choledocholithiasis (Acute) Prostate cancer (Chronic) Hypertension (Chronic) Surgical History History of orchiectomy, unilateral Social History Smoking/Tobacco Use Status: Never Smoking risk assessment performed?: Yes Alcohol Intake: never Drug use: Never Substance use type: does not use current occupation: retired Do you feel safe at home: Yes Do you feel safe in your relationship?: Yes Time Spent with Patient Time Spent with Patient: 45-69 minutes Time was spent: preparing to see the patient(eg.review tests), obtaining and/or reviewing separately otained hiistory, ordering medications,tests, procedures, counseling the patient and care coordination
--- NOTE | 2022-12-29 10:42 | PDOC.CMDIS ---
- If Service Date Differs Date of service: 12/29/22 Time of Service: 11:03 LACE Index Scoring Tool - Questions: Length of Stay (in days): 2 Acuity (Admit via E.D.?): Yes Comorbidities: Any Tumor E.D. Visits: 2 - Answers: Total Score: 9 Risk of Readmission: Low Risk Care Management Discharge Reason for Hospitalization: choledocholithiasis Discharge Plan: Rakesh will discharge home with no new services. He will follow up with his community providers and plan of care and transport with family. Patient/Family Education Needs: Review of dsicharge instructions, activity, limitations, follow up plan, discuss Ask Me Three
[2022-12-30 11:18] LABS: Haptoglobin 236 mg/dL (32-197)
[2022-12-30 11:52] LABS: Hepatitis C Ab w Rflx HCV PCR Negative (Negative)
== END 2022-12-29 12:36 | disposition home or self-care (01) | DRG 444 ==
LOC: ER 22:47 → MS 12-24 00:04
PROVIDERS: Surgery; Admitting Provider Surgery; Emergency Provider Physician Assistant; PCP Internal Medicine; Visit Provider Surgery
DX: K80.71 Calculus of gallbladder and bile duct without cholecystitis with obstruction (principal); K85.90 Acute pancreatitis without necrosis or infection, unspecified; C79.11 Secondary malignant neoplasm of bladder; E87.1 Hypo-osmolality and hyponatremia; N17.9 Acute kidney failure, unspecified; R78.81 Bacteremia; R74.01 Elevation of levels of liver transaminase levels; E80.6 Other disorders of bilirubin metabolism; C61 Malignant neoplasm of prostate; I10 Essential (primary) hypertension; Z90.79 Acquired absence of other genital organ(s); R31.0 Gross hematuria; D69.6 Thrombocytopenia, unspecified; Z91.199 Patient's noncompliance with other medical treatment and regimen due to unspecified reason; K59.00 Constipation, unspecified
CPT/HCPCS: 36415; 80048; 80053; 80076; 83690; 85027; 85652; 86803; 87040; 87077; 87635; 93005; 96361; 96365; 99285; 74177; 81003; 81015; 83010; 83605; 83615; 83735; 85025; 85045; 86140; 87086; 87186; 93010; J0131; J2405; J2543; J3480; J3490; J7512

== ENCOUNTER 2023-01-07 03:04 | Outpatient (CLI) | payer OTHER, SELFPAY ==
[2023-01-07 12:48] LABS: HGB 11.4 g/dL (13.5-17.5); MCH 31.6 pg (27.0-33.0); MCHC 33.5 % (32.0-36.0); MCV 94 fL (80-95); MPV 9.6 fL (8.0-11.0); Platelet Count 142 10^3/uL (130-400); RBC 3.61 10^6/uL (4.36-5.78); RDW 14.9 % (11.8-14.1); RDW-SD 51.8 fL; WBC 8.31 10^3/uL (4.4-10.8)
== END 2023-01-07 03:05 | disposition home or self-care (01) ==
LOC: LBO 03:04
PROVIDERS: PCP Internal Medicine; Visit Provider Surgery
DX: D69.6 Thrombocytopenia, unspecified (principal)
CPT/HCPCS: 36415; 85027

== ENCOUNTER 2023-02-26 03:32 | Outpatient (CLI) | payer OTHER, SELFPAY ==
[2023-02-26 15:11] LABS: Abs Immature Grans 0.04 10^3/uL (0.0-0.06); Absolute Basophil Count 0.02 10^3/uL (0.0-0.2); Absolute Eosinophil Count 0.03 10^3/uL (0.0-0.7); Absolute Lymphocyte Count 1.11 10^3/uL (1.2-3.4); Absolute Monocyte Count 0.47 10^3/uL (0.1-0.8); Absolute Neutrophil Count 4.54 10^3/uL (1.2-6.7); Basophils % 0.3; Eosinophils % 0.5; HCT 35.2 % (40.0-50.0); HGB 12.2 g/dL (13.5-17.5); Immature Grans % 0.6; Lymphocytes % 17.9; MCH 32.9 pg (27.0-33.0); MCHC 34.7 % (32.0-36.0); MCV 95 fL (80-95); MPV 9.3 fL (8.0-11.0); Monocytes % 7.6; Neutrophils % 73.1; Platelet Count 140 10^3/uL (130-400); RBC 3.71 10^6/uL (4.36-5.78); RDW 14.2 % (11.8-14.1); RDW-SD 49.7 fL; WBC 6.21 10^3/uL (4.4-10.8)
[2023-02-26 16:12] LABS: ALT 25 U/L (16-63); AST 23 U/L (15-37); Alkaline Phosphatase 89 U/L (46-116); Anion Gap 9.5 mmol/L (3-11); BUN 18 mg/dL (7-18); Bilirubin, Total 0.7 mg/dL (0.2-1.0); CO2 26.5 mmol/L (21.0-32.0); CREATININE 1.7 mg/dL (0.70-1.30); Calcium 9.3 mg/dL (8.5-10.1); Chloride 106 mmol/L (98-107); Estimated GFR 41.78 (mL/min/1.73m2); Glucose 112 mg/dL (74-106); Potassium 4.1 mmol/L (3.5-5.1); Sodium 142 mmol/L (136-145); Total Protein 6.8 g/dL (6.4-8.2)
[2023-02-27 17:03] LABS: PSA, Ultrasensitive 64.6 ng/mL (<= 6.5)
[2023-03-03 14:06] LABS: Testosterone, Total <7.0 ng/dL (240-950)
== END 2023-02-26 03:33 | disposition home or self-care (01) ==
LOC: LBO 03:33
PROVIDERS: PCP Internal Medicine; Visit Provider Internal Medicine
DX: C61 Malignant neoplasm of prostate (principal); Z79.818 Long term (current) use of other agents affecting estrogen receptors and estrogen levels
CPT/HCPCS: 36415; 80053; 84153; 84403; 85025

== ENCOUNTER 2023-06-26 10:53 | Emergency (ER) | payer OTHER, SELFPAY ==
[2023-06-26] VITALS (36 sets, daily range): BP systolic 154–219; BP diastolic 72–101; PULSE 60–90; RESP 11–23; TEMP 37.3; O2SAT 98
--- NOTE | 2023-06-26 10:45 | RT.EKG_ITS ---
APPROVED REPORT Exam: Resting ECG Reason for Exam: Chest Pain Patient Location: E HR:86 bpm ECG Measurements Heart Rate 86 AXIS VT 150 P 63 QRSd 84 QRS -6 QT 362 T 43 QTc 433 Conclusion Sinus rhythm...normal P axis, V-rate 60- 99
[2023-06-26 11:21] LABS: Abs Immature Grans 0.03 10^3/uL (0.0-0.06); Absolute Basophil Count 0.03 10^3/uL (0.0-0.2); Absolute Eosinophil Count 0.09 10^3/uL (0.0-0.7); Absolute Lymphocyte Count 1.55 10^3/uL (1.2-3.4); Absolute Monocyte Count 0.52 10^3/uL (0.1-0.8); Absolute Neutrophil Count 3.11 10^3/uL (1.2-6.7); Basophils % 0.6; Eosinophils % 1.7; HCT 42.6 % (40.0-50.0); HGB 14.5 g/dL (13.5-17.5); Immature Grans % 0.6; Lymphocytes % 29.1; MCH 31.5 pg (27.0-33.0); MCV 93 fL (80-95); MPV 9.5 fL (8.0-11.0); Monocytes % 9.8; Neutrophils % 58.2; Platelet Count 141 10^3/uL (130-400); RDW 13.2 % (11.8-14.1); RDW-SD 44.7 fL; WBC 5.33 10^3/uL (4.4-10.8)
[2023-06-26 11:39] LABS: Bilirubin Negative (Negative); Blood Trace-intact (Negative); Clarity Clear (Clear); Glucose Negative (Negative); Ketones Negative (Negative); Leukocyte Esterase Moderate (Negative); Nitrite Negative (Negative); Specific Gravity 1.015 (1.005-1.025); Urobilinogen 0.2 mg/dL (Up to 0.2)
[2023-06-26 11:41] LABS: ALT 30 U/L (16-63); AST 29 U/L (15-37); Albumin 4.6 g/dL (3.4-5.0); Alkaline Phosphatase 125 U/L (46-116); Anion Gap 10.4 mmol/L (3-11); BUN 16 mg/dL (7-18); Bilirubin, Total 0.7 mg/dL (0.2-1.0); CO2 26.6 mmol/L (21.0-32.0); CREATININE 1.5 mg/dL (0.70-1.30); Calcium 10.2 mg/dL (8.5-10.1); Chloride 99 mmol/L (98-107); Estimated GFR 48.25 (mL/min/1.73m2); Glucose 123 mg/dL (74-106); Magnesium 1.9 mg/dL (1.8-2.4); Potassium 3.8 mmol/L (3.5-5.1); Sodium 136 mmol/L (136-145); Total Protein 8.4 g/dL (6.4-8.2); Troponin I < 50 ng/L (<or=60)
[2023-06-26 11:47] LABS: Bacteria Many HPF (Negative); C & S Indicated? Yes; Casts Negative LPF (Negative); Crystals Negative HPF (Negative); Epithelial Cells Negative HPF (Negative); Mucus Negative (Negative); WBC >50 HPF (0-5)
[2023-06-26 11:54] LABS: D-Dimer 888 ng/mlFEU (<500)
--- NOTE | 2023-06-26 12:47 | DI.CT_ITS ---
Exam(s) CT CHEST PE ABD PELVIS W EXAM: CT CHEST PE ABD PELVIS W CLINICAL HISTORY: right chest pain and elevated ddimer. TECHNIQUE: Imaging Protocol: Axial CT angiography was performed with multi-slice acquisition and mu lti-planar and/or 3D reconstructions. CONTRAST MATERIAL: Intravenous: Omnipaque 350contrast volume:100 mL COMPARISON: CT CT ABDOMEN PELVIS W from 12/23/2022 FINDINGS: CHEST: Tracheobronchial tree: Patent where visualized. Pulmonary parenchyma: No consolidation or dominant measurable mass. No architectural distortion. Ther e is dependent atelectasis in the lung bases. Pulmonary Arteries: No evidence of filling defect to suggest pulmonary emboli. Mediastinum and Latisha: No dominant adenopathy or fluid collection. The esophagus is unremarkable. Ther e is a small hiatal hernia. Visualized thyroid gland: Unremarkable. Pleura: No effusion or pneumothorax. Heart: The heart is not dilated. Coronary artery calcifications are present. No pericardial effusion . Aorta: Thoracic aorta non-dilated. No evidence of dissection. Bones: Within normal limits for the patient's age. Soft tissues: Unremarkable. ABDOMEN: Liver: Normal density. No measurable mass. Portal, Superior Mesenteric, and Splenic Veins: Unremarkable. Gallbladder and Biliary Tract: Cholelithiasis. There are stones seen in the neck of the gallbladder. No biliary ductal dilatation. Pancreas: Normal density, no abnormal calcifications or inflammatory process. Spleen: Normal. Adrenals: No masses seen. Kidneys: There is left renal cortical scarring. There are hypodensities seen in the kidneys bilatera lly which are too small for further characterization but likely reflect small cysts. There is a 1.3 cm simple cyst in the lower pole of the right kidney. There is a nonobstructing stone in the lower p ole of the left kidney. No masses seen. Abdominal Aorta: Abdominal portion non-dilated. Atherosclerosis. Bowel: There are few scattered diverticula but no evidence of acute diverticulitis. There is no evid ence of bowel obstruction or bowel wall thickening. Appendix is unremarkable. Peritoneal Cavity: No ascites, collection or mesenteric inflammatory response. No free air. Lymph Nodes: Mildly enlarged inguinal lymph nodes. These are largely stable. Bones: Within normal limits for the patient's age. Soft Tissues: Unremarkable. PELVIS: Bladder: There is asymmetric thickening seen in the base of the urinary bladder on the right. Reproductive Organs: The prostate gland is enlarged and lobulated. There is heterogeneous enhancemen t. There is asymmetric enlargement of the right seminal vesicle. Lymph Nodes: There are enlarged left inguinal lymph nodes. The largest measures 3.6 x 2.5 cm. Bones: Within normal limits. IMPRESSION: 1. No evidence pulmonary embolism, thoracic aortic dissection or aneurysm. 2. Enlarged and heterogeneously enhancing prostate gland with enlargement of the right seminal vesicl e. There is asymmetric thickening of the base of the urinary bladder on the right. Neoplasm is susp ected. This may arise from the prostate gland or the base of the urinary bladder. 3. Left inguinal adenopathy. 4. Cholelithiasis. No biliary ductal dilatation. 5. No acute abdominal or pelvic process. RADIATION DOSE DELIVERED: Total DLP DATA REPOSITORY: All CT scans at this facility are submitted to the National Radiology Data Registry (NRDR) Dose Index Registry (DIR) with the [employer] (ACR). RADIATION OPTIMIZATION: All CT scans at this facility use at least one of these dose optimization te chniques: automated exposure control; mA and/or kV adjustment per patient size (includes targeted exa ms where dose is matched to clinical indication); or iterative reconstruction.
--- NOTE | 2023-06-26 13:22 | ED.GENADUL_ITS ---
Discharge Plan Disposition Patient Disposition: Home Discharge Details Clinical Impression: Acute UTI, Cholelithiasis Primary Care Provider: YASMEEN VILLA ED Provider: Shi Bal Home Meds and New Rx's Prescriptions: New cephalexin 500 mg capsule 500 mg PO TID 10 Days Qty: 30 0RF Continued lisinopril 20 mg tablet 20 mg PO DAILY acetaminophen [Tylenol] 325 mg capsule 650 mg PO Q6H PRN Lupron Depot (3 month) 22.5 mg syringe kit 22.5 mg IM [id number] multivitamin Tablet 1 tab PO DAILY polyvinyl alcohol [Artificial Tears (polyvin alc)] 1.4 % Drops 2 drp OPHTHALMIC (EYE) BID-QID PRN Moisturizing Cream Cream 1 applic TOPICAL PRN PRN abiraterone 250 mg Tablet 1,000 mg PO DAILY Hold Instructions: Changed by Provider prednisone 5 mg Tablet 5 mg PO DAILY Discharge Instructions Instructions: Biliary Colic (ED), Urinary Tract Infection in Men (ED) Additional Instructions: Take antibiotic as prescribed Yogurt daily while on antibiotic Follow-up with surgeon regarding biliary colic Please be reassessed in 48 hours and return earlier should you have new or worsening complaints Continue to watch your diet Referrals: Linda Patel MD [ [facility]] - Discharge Data Discharge Date/Time-TO BE ENTERED AT DEPARTURE: 06/26/23 16:15 Medical Decision Making 73-year-old male presenting with right upper quadrant pain intermittently for the past 2 weeks. History of biliary colic with choledocholithiasis needing biliary stent that was removed in February he has similar symptoms now, mostly. Precipitated No leukocytosis, LFTs within normal limits, no jaundice or icterus, bilirubin within normal limits D-dimer was elevated at 88 and patient has right upper quadrant pain with history of prostate cancer therefore CTA chest and CT abdomen pelvis was ordered given prior history of choledocholithiasis, no evidence of acute obstrutive process Afebrile, nontoxic, surgery consulted to review labs and plan I did consider cardiac etiology of patient's complaints however given his symptoms the presentation would be atypical and he has negative EKG with 2 negative troponins in the emergency department Patient will be referred back to surgery for possibility of biliary colic At this time he is uncertain regarding whether or not he wants surgical intervention Return should he develop skin discoloration, fever, worsening or persistent pain, he is pain-free at time of discharge home, he does have a urinary tract infection, he was treated with Keflex HPI General Date/Time Provider Initiated Documentation: 06/26/23 11:01 . HPI Narrative: This 73-year-old gentleman with history of prostate cancer, last chemotherapy 4 weeks ago, chronic kidney disease, thrombocytopenia, bacteremia, and hypertension with recent cholelithiasis and biliary stasis with stent placement and removal in February presents with report of right upper quadrant pain. Patient states has been intermittent for the past 2 weeks. Denies any chest wall pain. Denies any fever or chills. Denies any skin discoloration. Denies any urinary symptoms. Related Data Home Medications Medication Instructions Recorded Confirmed acetaminophen 325 mg capsule 650 mg PO Q6H PRN 10/11/21 06/26/23 (Tylenol) lisinopril 20 mg tablet 20 mg PO DAILY 10/11/21 06/26/23 multivitamin 1 tab PO DAILY 01/28/22 06/26/23 [id number] 1 applic topical PRN PRN 12/23/22 06/26/23 petrolatum topical cream (Moisturizing Cream topical) polyvinyl alcohol 1.4 % eye drops 2 drp ophthalmic (eye) BID-QID PRN 12/23/22 06/26/23 (Artificial Tears (polyvinyl alcohol)) abiraterone 250 mg tablet 1,000 mg PO DAILY 12/24/22 06/26/23 prednisone 5 mg tablet 5 mg PO DAILY 12/24/22 06/26/23 leuprolide (3 month) 22.5 mg (3 22.5 mg IM [id number] 01/07/23 06/26/23 month) intramuscular syringe kit (Lupron Depot) cephalexin 500 mg capsule 500 mg PO TID 10 days #30 caps 06/26/23 Previous Rx's Medication Instructions Recorded cephalexin 500 mg capsule 500 mg PO TID 10 days #30 caps 06/26/23 Allergies Allergy/AdvReac Type Severity Reaction Status Date / Time sulfur [From Sulfur-8] Allergy Verified 06/26/23 11:05 General Stated Complaint: Chest/Rib MICHEAL: 3 PFSH All Active Problems (Updated 06/26/23 @ 16:00 by IMMANUEL Herrera) Cholelithiasis (Acute) Acute UTI (Acute) Cholelithiasis (Acute) Bacteremia due to Klebsiella pneumoniae (Acute) Thrombocytopenia (Chronic) Chronic kidney disease (CKD) stage G3b/A1, moderately decreased glomerular filtration rate (GFR) between 30-44 mL/min/1.73 square meter and albuminuria creatinine ratio less than 30 mg/g (Acute) Prostate cancer (Chronic) Hypertension (Chronic) Surgical History History of orchiectomy, unilateral Social History Smoking/Tobacco Use Status: Never Smoking risk assessment performed?: Yes Alcohol Intake: never Drug use: Never Substance use type: does not use current occupation: retired Do you feel safe at home: Yes Do you feel safe in your relationship?: Yes Course Vital Signs Vital signs: Vital Signs Temperature 37.3 C 06/26/23 10:57 Pulse 90 06/26/23 10:57 Respiratory Rate 18 06/26/23 10:57 Blood Pressure 219/101 H 06/26/23 10:57 Pulse Oximetry 98 06/26/23 10:57 Temperature 37.3 C 06/26/23 10:57 Temperature Source Oral 06/26/23 10:57 Pulse 71 06/26/23 11:46 Pulse 71 06/26/23 11:46 Respiratory Rate 11 L 06/26/23 11:46 Respiratory Effort Normal 06/26/23 11:12 Respiratory Depth Normal 06/26/23 11:12 Respiratory Pattern Normal 06/26/23 11:12 Blood Pressure 175/75 H 06/26/23 11:46 Blood Pressure Mean 112 06/26/23 11:46 Blood Pressure Position Sitting 06/26/23 10:57 Pulse Oximetry 98 06/26/23 10:57 Lab/Test Results Lab/Test Results: 06/26/23 11:32 Urine - Reflex from Ua Urine Culture - Pending Laboratory Tests Range/Units 06/26/23 06/26/23 06/26/23 11:03 11:15 11:32 WBC (4.4-10.8) 10^3/uL 5.33 RBC (4.36-5.78) 10^6/uL 4.60 Hgb (13.5-17.5) g/dL 14.5 Hct (40.0-50.0) % 42.6 MCV (80-95) fL 93 MCH (27.0-33.0) pg 31.5 MCHC (32.0-36.0) % 34.0 RDW (11.8-14.1) % 13.2 Plt Count (130-400) 10^3/uL 141 MPV (8.0-11.0) fL 9.5 Immature Gran % 0.6 Neutrophils % 58.2 Lymphocytes % 29.1 Monocytes % 9.8 Eosinophils % 1.7 Basophils % 0.6 Nucleated RBC % (0.0-0.3) % 0.0 Absolute Neutrophils (1.2-6.7) 10^3/uL 3.11 Absolute Lymphocytes (1.2-3.4) 10^3/uL 1.55 Absolute Monocytes (0.1-0.8) 10^3/uL 0.52 Absolute Eosinophils (0.0-0.7) 10^3/uL 0.09 Absolute Basophils (0.0-0.2) 10^3/uL 0.03 D-Dimer (<500) ng/mlFEU 888 H Sodium Cancelled 136 Potassium Cancelled 3.8 Chloride Cancelled 99 Carbon Dioxide Cancelled 26.6 Anion Gap Cancelled 10.4 BUN Cancelled 16 Creatinine Cancelled 1.5 H Est GFR (CKD-EPI 2020) Cancelled 48.25 Glucose Cancelled 123 H Calcium Cancelled 10.2 H Magnesium (1.8-2.4) mg/dL 1.9 Total Bilirubin Cancelled 0.7 AST Cancelled 29 ALT Cancelled 30 Alkaline Phosphatase Cancelled 125 H Troponin I (<or=60) ng/L < 50 Total Protein Cancelled 8.4 H Albumin Cancelled 4.6 Urine Color (Yellow) Yellow Urine Clarity (Clear) Clear Urine pH (5-8) 7.0 Ur Specific Jewell (1.005-1.025) 1.015 Urine Protein (Negative) mg/dL Negative Urine Ketones (Negative) mg/dL Negative Urine Blood (Negative) Trace-intact H Urine Nitrite (Negative) Negative Urine Bilirubin (Negative) Negative Urine Urobilinogen (Up to 0.2) mg/dL 0.2 Ur Leukocyte Esterase (Negative) Moderate H Urine RBC (0-2) HPF 5-10 H Urine WBC (0-5) HPF >50 H Ur Epithelial Cells (Negative) HPF Negative Urine Crystals (Negative) HPF Negative Urine Bacteria (Negative) HPF Many Urine Casts (Negative) LPF Negative Urine Mucus (Negative) Negative Ur Culture Indicated? Yes Urine Glucose (Negative) mg/dL Negative
[2023-06-26] MEDS: Omnipaque 350 MG/ML 500 ML BTL-Imaging package IJ (13:54)
[2023-06-26 15:22] LABS: Troponin I < 50 ng/L (<or=60)
[2023-06-26] MEDS: Cephalexin 500 MG CAP PO (16:18)
== END 2023-06-26 16:15 | disposition home or self-care (01) ==
PROVIDERS: Emergency Provider Physician Assistant; PCP Internal Medicine
DX: K80.20 Calculus of gallbladder without cholecystitis without obstruction (principal); N39.0 Urinary tract infection, site not specified
CPT/HCPCS: 36415; 71275; 74177; 80053; 87077; 93005; 99285; 81003; 81015; 83735; 84484; 85025; 85379; 87086; 87186; 93010; 99284

== ENCOUNTER 2023-11-04 05:09 | Outpatient (CLI) | payer OTHER, SELFPAY ==
[2023-11-04 08:39] LABS: Abs Immature Grans 0.66 10^3/uL (0.0-0.06); Absolute Basophil Count 0.13 10^3/uL (0.0-0.2); Absolute Eosinophil Count 0.01 10^3/uL (0.0-0.7); Absolute Lymphocyte Count 1.91 10^3/uL (1.2-3.4); Absolute Monocyte Count 1.83 10^3/uL (0.1-0.8); Absolute Neutrophil Count 8.89 10^3/uL (1.2-6.7); Eosinophils % 0.1; HCT 38.9 % (40.0-50.0); HGB 12.5 g/dL (13.5-17.5); Immature Grans % 4.9; Lymphocytes % 14.2; MCH 31.8 pg (27.0-33.0); MCHC 32.1 % (32.0-36.0); MCV 99 fL (80-95); MPV 10.2 fL (8.0-11.0); Monocytes % 13.6; Neutrophils % 66.2; Platelet Count 133 10^3/uL (130-400); RBC 3.93 10^6/uL (4.36-5.78); RDW 15.1 % (11.8-14.1); RDW-SD 54.4 fL; WBC 13.43 10^3/uL (4.4-10.8)
[2023-11-04 09:02] LABS: ALT 24 U/L (16-63); AST 25 U/L (15-37); Albumin 3.6 g/dL (3.4-5.0); Alkaline Phosphatase 118 U/L (46-116); Anion Gap 13.5 mmol/L (3-11); BUN 18 mg/dL (7-18); Bilirubin, Total 0.6 mg/dL (0.2-1.0); CO2 20.5 mmol/L (21.0-32.0); CREATININE 1.5 mg/dL (0.70-1.30); Calcium 9.4 mg/dL (8.5-10.1); Chloride 103 mmol/L (98-107); Estimated GFR 48.25 (mL/min/1.73m2); Glucose 79 mg/dL (74-106); Potassium 3.8 mmol/L (3.5-5.1); Sodium 137 mmol/L (136-145); Total Protein 7.1 g/dL (6.4-8.2)
[2023-11-04 09:11] LABS: RBC Morphology Normal
[2023-11-04 09:12] LABS: Diff Comment Agrees w/ Instrument
[2023-11-05 19:47] LABS: PSA, Ultrasensitive 288 ng/mL (<= 6.5)
[2023-11-07 15:43] LABS: Testosterone, Total <7.0 ng/dL (240-950)
== END 2023-11-04 05:10 | disposition home or self-care (01) ==
LOC: LBO 05:10
PROVIDERS: PCP Internal Medicine; Visit Provider Internal Medicine
DX: C61 Malignant neoplasm of prostate (principal)
CPT/HCPCS: 36415; 80053; 84153; 84403; 85025